=== PATIENT | male | born 1970 | race Caucasian/White ===

== ENCOUNTER → 2017-04-22 08:38 | Outpatient (CLI) | payer OTHER, SELFPAY ==
--- NOTE | 2017-04-22 08:43 | RAD_ITS ---
STUDY: X-RAY - ESOPHAGUS (BARIUM SWALLOW) WITH FLUOROSCOPY REASON FOR EXAM: Male, 47 years old. History of chronic cough and gastroesophageal reflux disease. Dermatomyositis.. TECHNIQUE: 24 view(s) of the esophagus were obtained following swallowing of barium. FLUOROSCOPY TIME (if supplied): (0:29) minutes/seconds COMPARISON: None. FINDINGS: There is no demonstrated esophageal foreign body. There is no demonstrated stricture or mucosal abnormality. There is a small hiatal hernia of the fundus of the stomach. No gastroesophageal reflux. The patient ingested a 12 mm tablet of barium without any difficulty. There is atherosclerotic tortuosity of the aortic arch and descending thoracic aorta. Normal visualized pulmonary parenchyma. Normal visualized osseous structures of the thorax. RAD/Esophagus Only IMPRESSION: Small sliding hiatal hernia without gastroesophageal reflux. The patient ingested a 12 mm tablet of barium without any difficulty. Electronically Signed: Alonso Wilson MD at 9:27 EST Tel [phone], Service support ,
== END ==
PROVIDERS: Family Provider Family Medicine; PCP Family Medicine
DX: M33.90 Dermatopolymyositis, unspecified, organ involvement unspecified (principal); I27.0 Primary pulmonary hypertension; I73.00 Raynaud's syndrome without gangrene; K21.9 Gastro-esophageal reflux disease without esophagitis
CPT/HCPCS: 74220

== ENCOUNTER → 2018-07-29 | Outpatient (CLI) | payer OTHER, SELFPAY ==
[2018-07-29 08:01] VITALS: BP 115/79; PULSE 59; RESP 16; TEMP 36.6; O2SAT 99; BMI 28.2
[2018-07-29] MEDS: MethylPREDNISolone 125 MG/2 ML Vial IV (08:15)
[2018-07-29] MEDS: DiphenhydrAMINE 50 MG/ML Syringe 25 MG IV (08:16)
[2018-07-29] MEDS: Acetaminophen 325 MG Tablet 650 MG PO (08:16)
[2018-07-29 13:32] VITALS: BP 117/77; PULSE 64; RESP 18; TEMP 36.8; O2SAT 97
== END | disposition home or self-care (01) ==
PROVIDERS: Family Provider Family Medicine; PCP Family Medicine
DX: M06.9 Rheumatoid arthritis, unspecified (principal)
CPT/HCPCS: 96365; 96366 ×4; 96374; 96375 ×2; J7040; J7050; J9312; A4216; J3490

== ENCOUNTER → 2018-08-12 08:11 | Outpatient (CLI) | payer OTHER, SELFPAY ==
[2018-07-29 08:01] VITALS: BMI 28.2
[2018-08-12 08:21] VITALS: BP 124/78; PULSE 51; RESP 16; TEMP 36.1; O2SAT 99; BMI 28.2
[2018-08-12] MEDS: MethylPREDNISolone 125 MG/2 ML Vial IV (08:34)
[2018-08-12] MEDS: Acetaminophen 325 MG Tablet 650 MG PO (08:34)
[2018-08-12] MEDS: DiphenhydrAMINE 50 MG/ML Syringe 25 MG IV (08:36)
== END ==
PROVIDERS: Family Provider Family Medicine; PCP Family Medicine
DX: M06.9 Rheumatoid arthritis, unspecified (principal)
CPT/HCPCS: 96365; 96366 ×3; 96374; 96375 ×2; J7040; J7050; J9312; A4216; J3490

== ENCOUNTER 2019-04-14 11:33 | Observation (INO) | payer OTHER, SELFPAY ==
[2018-08-12 08:21] VITALS: BMI 28.2
[2019-04-14 11:34] VITALS: BP 128/84; PULSE 75; RESP 22; TEMP 37.3; O2SAT 98; BMI 29.5
--- NOTE | 2019-04-14 11:49 | RAD_ITS ---
STUDY: X-RAY CHEST REASON FOR EXAM: Male, 49 years old. COUGH, SYNCOPE, HX INTERSITIAL LUNG DISEASE TECHNIQUE: PA and lateral views of the chest. COMPARISON: Comparison is made with prior study dated August 23, 2010. FINDINGS: EKG electrodes are seen. There is evidence of increased interstitial markings at the lung bases with areas of confluence suggestive of progressive pulmonary scarring. This has progressed as compared to prior study. There is no demonstrated pleural abnormality. Normal size heart. Normal mediastinum and anthony. Normal visualized pulmonary arteries. Normal visualized aortic arch and descending thoracic aorta. Normal visualized thoracic spine. Calcification in the soft tissues medial to the proximal left humerus. There is no demonstrated abnormality of the visualized soft tissue structures of the upper abdomen. RAD/Chest PA and Lateral IMPRESSION: Findings suggestive of pulmonary scarring in both lower lobes which has progressed as compared to prior study. Electronically Signed: Alonso Wilson, at 12:52 EST , Service support ,
--- NOTE | 2019-04-14 11:49 | EKG12_ITS ---
Test Reason : SYNCOPE Blood Pressure : / mmHG Vent. Rate : 073 BPM Atrial Rate : 073 BPM P-R Int : 138 ms QRS Dur : 090 ms QT Int : 370 ms P-R-T Axes : 026 046 047 degrees QTc Int : 407 ms Normal sinus rhythm T wave abnormality, consider lateral ischemia Abnormal ECG Confirmed by KASANDRA REBOLLAR ([id number]), editorial project manager IAN BOX ([id number]) on 04/17/2019 9:43:04 AM Referred By: AZALEA
[2019-04-14 12:10] LABS: Absolute Lymphocyte Count 0.78 X10^3/uL (0.83-4.51); Absolute Neutrophil Count 6.2 X10^3/uL (2.0-7.7); Basophil# 0.03 X10^3/uL; Basophil% 0.4 % (0-1); Eosinophil# 0.21 X10^3/uL; Eosinophils% 2.6 % (0-5); Hematocrit 46.8 % (40-54); Hemoglobin 15.2 g/dL (13.0-16.5); Lymphocyte # 0.78 X10^3/ul (4.0); Lymphocyte % 9.5 % (19-41); Mean Corp Hgb Conc 32.5 g/dL (32-36); Mean Corpuscular Hgb 28.6 pg (27.0-32.0); Mean Corpuscular Volume 88.1 fL (80-94); Mean Platelet Vol. 10.9 fl (6.2-12.0); Monocyte# 0.95 X10^3/uL; Monocyte% 11.6 % (0-10); NRBC Flagged by Analyzer 0 % (0-5); Neutrophil # 6.18 X10^3/uL (2.7-7.7); Neutrophil % 75.7 % (47-70); Platelet Count 159 K/mm3 (150-450); RBC Distribution Width CV 13.9 % (11.6-14.6); RBC Distribution Width SD 44.6 fl (35.1-43.9); Red Blood Count 5.31 M/mm3 (4.6-6.2); White Blood Count 8.2 K/mm3 (4.4-11.0)
[2019-04-14 12:11] LABS: Erythrocyte Sedimentation Rate 4 mm/hr (0-20)
[2019-04-14] MEDS: 0.9% Normal Saline 1,000 ML 150 ML IV (12:22)
[2019-04-14 12:40] LABS: Anion Gap 5 (5-15); BUN 12 mg/dL (7-18); BUN/Creat Ratio 11.7 RATIO (10-20); Chloride 106 mmol/L (98-107); Creatinine, Serum 1.03 mg/dL (0.70-1.30); EST Glomerular Filtration Rate 81 mL/min (>60); Est Glom Filt Rate - Afr Amer 98 mL/min (>60); Estimated Creatinine Clearance 98.65 ml/min; Glucose 119 mg/dL (74-106); Potassium 3.3 mmol/L (3.5-5.1); Sodium Level 140 mmol/L (136-145)
[2019-04-14 12:59] LABS: CPK Total, Creatine Kinase 70 U/L (39-308)
--- NOTE | 2019-04-14 13:26 | PCM.HP.STD ---
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 Patient admitted to having had recent upper respiratory infection 5 days which has since resolved. Patient presented to the primary care doctor's office with complaints of generalized malaise, and while being evaluated for lymphadenopathy by the PA, he reportedly had a syncopal episode. It is unclear how long patient had a syncopal episode. Reportedly half an hour for the syncope, patient still felt lightheaded and his blood pressures were low and the EMS was called and brought to the emergency department. His vitals in the ED showed temperature of 90 9.1F, heart rate 75, blood pressure 128/84, respiratory rate was 22, SPO2 was 98% on room air. Influenza screen in the ED was negative. His admitting CBC D was unremarkable, and was 140, potassium 3.3, chloride 106, bicarbonate 29, BUN 12, creatinine 1.03, CK 70, troponin 0 0.017, calcium 8.0. Chest x-ray showed scarring in both lower lobes of the lungs. EKG shows NSR, generalised T wave inversions in leads I, aVL, V1-V6. Past Medical History Past Medical History (Chronic Problems): Chronic Problems Dermatomyositis (Chronic) Interstitial lung disease (Chronic) Allergies No Known Allergies Allergy (Verified 04/14/19 11:38) Home Medications: Ambulatory Orders Medication Instructions Recorded Fluticasone 0.05% [Flonase Nasal 1 spray NASAL DAILY PRN 08/12/18 [place]] Mycophenolate Mofetil [Cellcept] 1,500 mg PO DAILY 08/12/18 Acetaminophen [Tylenol Extra 500 mg PO DAILY PRN PRN 04/14/19 Strength] Guaifenesin/Dextromethorphan 1 tab PO Q12H 04/14/19 [Mucinex Dm ER 1,200-60 mg Tab] Naproxen 500 mg PO DAILY PRN PRN 04/14/19 Surgical History: - - s/p chest tube placement for spontaneous hemothorax, lung biopsy Psychiatric History: No pertinent psych hx Lives: Spouse/ Significant Other Smoking Status: Never smoker Tobacco Use: Non-smoker Alcohol: None Drugs: None - *Family History Maternal History Items: No pertinent history Paternal History Items: No pertinent history Review of Systems Constitutional: Reports: Malaise, Weakness, Fatigue. Denies: Anorexia, Chills, Fever, Weight Change Eyes: Denies: Blurred vision, Cataracts, Conjunctivae Inflammation, Pain, Redness, Vision Change HEENT: Denies: Difficulty Hearing, Difficulty Swallowing, Head Aches, Hearing Changes, Sinus Congestion, Sinus Drainage Cardiovascular: Denies: Chest Pain, Claudication, Orthopnea, Palpitations, Paroxysmal Noc. Dyspnea Respiratory: Reports: Cough, Shortness of breath upon exertion, Wheezing. Denies: Shortness of Breath, Shortness of breath at rest, Sputum production Gastrointestinal: Denies: Abdominal Pain, Constipation, Hematemesis, Hematochezia, Nausea, Vomiting Genitourinary: Denies: Dysuria, Frequency, Incontinence, Nocturia Musculoskeletal: Reports: Joint Pain, Joint Tenderness, Muscle pain. Denies: Joint stiffness, Joint swelling Skin: Denies: Rash, Wounds Neurological: Denies: Difficulty swallowing, Focal weakness, Numbness, Tingling Psychiatric: Denies: Anxiety, Depression, Homicidal Ideations, Suicidal Ideations Endocrine: Denies: Change in Body Habitus Hematologic/ Lymphatic: Denies: Easy Bruising, Easy Bleeding VTE Information - Inpt Only VTE Present on Admission: No VTE Pharm Prophylaxis ordered?: Yes Patient Problems: Active and Suspected Problems Generalized body aches (Acute) Abnormal EKG (Acute) - Physical Exam Vitals/I&O's: Vital Signs Temp Pulse Resp BP Pulse Ox 99.1 F 75 22 H 128/84 H 98 04/14/19 11:34 04/14/19 11:34 04/14/19 11:34 04/14/19 11:34 04/14/19 11:34 Oxygen Delivery Method Room Air Weight: 104.326 kg Body Mass Index (BMI) 29.5 General: Alert, Oriented x3, Cooperative, No apparent distress HEENT: Atraumatic, PERRLA, EOMI, Normocephalic Oral: Moist Mucosa Neck: Supple Lungs: Diminished - at the lung bases with crackles Cardiovascular: Regular rate, Regular Rhythm, Normal S1, Normal S2, No murmurs Abdomen: Bowel Sounds Present, Soft, Non Tender, Non-Distended, No Hepato-splenomegaly Extremities: No edema Skin: No rashes, No breakdown Musculoskeletal: No Tenderness to Palpation of Joints or Extremities Lymphatic: No Cervical, Supraclavicular, or Inguinal Adenopathy Neurological: Cranial nerves II-XII grossly intact, Neuro grossly intact Psych/Mental Status: Normal Affect, Appropriate Microbiology Past 72 Hours 04/14/19 12:04 Mucosa - Nasopharyngeal Influenza Types A,B Direct FA (RELL) - Final Laboratory Results 04/14/19 11:40: WBC 8.2, RBC 5.31, Hgb 15.2, Hct 46.8, MCV 88.1, MCH 28.6, MCHC 32.5, RDW Std Deviation 44.6 H, RDW Coeff of Madalyn 13.9, Plt Count 159, MPV 10.9, Immature Gran % (Auto) 0.200, Neut % (Auto) 75.7 H, Lymph % (Auto) 9.5 L, [place] % (Auto) 11.6 H, Eos % (Auto) 2.6, Baso % (Auto) 0.4, Absolute Neuts (auto) 6.2, Absolute Lymphs (auto) 0.78 L, Nucleated RBC % 0, ESR 4 04/14/19 11:40: Sodium 140, Potassium 3.3 L, Chloride 106, Carbon Dioxide 29.0, Anion Gap 5, BUN 12, Creatinine 1.03, Estim Creat Clear Calc 98.65, Est GFR (MDRD) Af Amer 98, Est GFR (MDRD) Non-Af 81, BUN/Creatinine Ratio 11.7, Glucose 119 H, Calcium 8.0 L, Troponin I 0.017 04/14/19 11:40: Total Creatine Kinase 70 Current Medications Sodium Chloride () 1,000 mls @ 150 mls/hr IV .Q6H40M [facility] Last Admin: 04/14/19 12:22 Dose: 150 mls/hr Documented by: Assessment/Plan All Active Problems Generalized body aches (Acute) Abnormal EKG (Acute) 49 year old M with PMHx of dermatomyositis, interstitial lung disease who presented with generalized malaise ongoing for a week and found to have abnormal EKG. 1. Abnormal EKG, generalized T wave inversions in lead I, aVL, V1 to V6; patient is asymptomatic of chest pain History of underlying dermatomyositis; patient at risk for MIs because of this Initial troponin is 0.017, will trend troponins Had a recent 2D echo, will get results from his primary hospital 2. Syncope, unclear etiology, likely vasovagal This reportedly happened as his primary care PA was examining his axilla Will check orthostatic vitals, gentle IV fluids 3. Generalized body aches, recent upper respiratory illness, influenza screen negative, unclear etiology for now History of dermatomyositis, CK is normal, WBC count was normal, ESR was 4 We will get respiratory panel, Tylenol as needed 4. Hypokalemia, potassium is 3.3, replace, recheck in a.m. 5. Dermatomyositis with interstitial lung disease, continue mycophenolate 6. DVT PPx- Heparin SC Code Visit OBSV E&M: 58865 Initial observation care L2
--- NOTE | 2019-04-14 13:39 | ED.VISSUMM ---
- ER Visit Summary Date of Service: 04/14/19 Chief Complaint: [Body aches, shortness of breath, syncope] History of Present Illness: The patient is a 49 M [presents to the emergency department with complaints of body aches for about 5 days. Patient states initially his illness started with a cough about a week or so ago. He denies any fevers. Denies chills or sweats. Patient was seen by nurse practitioner in his primary care physician's office today and was referred to the emergency department as he had an abnormal looking EKG and while pushing on the patient's right chest patient had a syncopal episode. Half hour after the syncopal episode patient continued to feel woozy with standing and his blood pressure was dropping. Patient on arrival to the emergency department denies any chest pain. Patient does have history of interstitial lung disease as well as dermatomyositis. Denies recent travel or surgery.] Physical Examination: [HEENT-PERRLA, EOMI. Cranial nerves II through XII grossly intact. TMs clear. Mucous membranes moist. No adenopathy. Cardiovascular-regular rate and rhythm without murmur or ectopy Lungs-clear to auscultation, chest wall stable without crepitus or subcu emphysema Abdomen-normoactive bowel sounds, soft, nontender, no rebound or rigidity, no peritoneal signs. Extremities-intact ?4, normal range of motion, normal pulses, atraumatic] Test Results: [EKG obtained arrival shows sinus rhythm with a ventricular rate of 73 bpm with non-specific ST changes he had flipped T waves anteriorly and laterally. CBC with it showing of 8.2, hemoglobin 15, hematocrit 47, plates 115. Sed rate was 4. Chemistries unremarkable. Troponin was 0.017. Chest x-ray showed scarring of bilateral lower lobes. Influenza screen was negative. Patient CPK was normal. Emergency Department Course and Treatment: [She was placed on satellite project site monitor. Patient was observed in the department and was given normal saline.] Treatment Plan: [Admit for further work-up and evaluation of the abnormal EKG and syncopal episode.] Disposition: [Admit] Impression: [Abnormal EKG Syncope Myalgias] This note was generated with Stickybits dictation software. It may contain incorrect words, spelling, and punctuation that were not noted in review of the chart prior to signing ED Disposition - Plan for ED Patient: Referrals: Mike Guo MD [Primary Care Provider] -
--- NOTE | 2019-04-14 13:43 | NURSING ---
PCU SYNCOPE PAINTSIL
[2019-04-14 14:39] VITALS: BP 127/72; PULSE 65; RESP 16; TEMP 36.2; O2SAT 98
[2019-04-14 14:50] VITALS: BMI 30.7
[2019-04-14 14:56] VITALS: BMI 30.7
[2019-04-14 15:11] VITALS: PULSE 73
--- NOTE | 2019-04-14 15:25 | EKG12_ITS ---
Test Reason : AM EKG Blood Pressure : / mmHG Vent. Rate : 072 BPM Atrial Rate : 072 BPM P-R Int : 144 ms QRS Dur : 086 ms QT Int : 372 ms P-R-T Axes : 031 050 028 degrees QTc Int : 407 ms Normal sinus rhythm Nonspecific T wave abnormality Abnormal ECG When compared with ECG of 14-APR-2019 11:37, MANUAL COMPARISON REQUIRED, DATA IS UNCONFIRMED Confirmed by KASANDRA REBOLLAR ([id number]), scientific editor IAN BOX ([id number]) on 04/17/2019 9:56:11 AM Referred By: SHEREE Confirmed By:KASANDRA REBOLLAR
[2019-04-14] MEDS: Morphine 2 MG/ML Syringe IV ×2 (15:49→20:15)
[2019-04-14] MEDS: 0.9% Saline Lock 10 ML Syringe IV (15:49)
[2019-04-14] MEDS: 0.9% Normal Saline 1,000 ML 100 ML IV (17:17)
[2019-04-14 17:49] LABS: AST(SGOT) 20 U/L (15-37); Alanine Aminotransfer ALT/SGPT 16 U/L (16-61); Alkaline Phosphatase 38 U/L (45-117); Bilirubin, Direct 0.13 mg/dL (0.00-0.30); Globulin 3.1 g/dL (2.2-4.2); Protein, Total 6.1 g/dL (6.4-8.2)
[2019-04-14 18:32] VITALS: BP 116/67; BP 120/73; BP 125/76; PULSE 62; PULSE 72; PULSE 83; PULSE 84; RESP 16; TEMP 36.8; O2SAT 96
[2019-04-14 20:07] VITALS: PULSE 95
[2019-04-14] MEDS: Heparin Injection (Vial) 5,000 UNIT/ML VIAL 5000 UNIT SC (21:47)
[2019-04-14] MEDS: Mycophenolate Mofetil 250 MG Capsule 500 MG PO (21:47)
[2019-04-14 21:48] VITALS: BP 116/73; PULSE 73; RESP 18; TEMP 36.8; O2SAT 96
[2019-04-15] MEDS: Morphine 2 MG/ML Syringe IV (00:02)
[2019-04-15 03:01] VITALS: PULSE 63
[2019-04-15] MEDS: Acetaminophen 325 MG Tablet 650 MG PO (03:38)
[2019-04-15 03:48] VITALS: BP 134/76; PULSE 67; RESP 16; TEMP 36.8; O2SAT 94
[2019-04-15 04:39] LABS: Absolute Lymphocyte Count 1.15 X10^3/uL (0.83-4.51); Absolute Neutrophil Count 3.9 X10^3/uL (2.0-7.7); Basophil# 0.01 X10^3/uL; Basophil% 0.2 % (0-1); Eosinophil# 0.18 X10^3/uL; Hematocrit 45.4 % (40-54); Hemoglobin 14.4 g/dL (13.0-16.5); Lymphocyte # 1.15 X10^3/ul (4.0); Lymphocyte % 19.2 % (19-41); Mean Corp Hgb Conc 31.7 g/dL (32-36); Mean Corpuscular Hgb 28.1 pg (27.0-32.0); Mean Corpuscular Volume 88.7 fL (80-94); Mean Platelet Vol. 10.8 fl (6.2-12.0); Monocyte# 0.71 X10^3/uL; Monocyte% 11.9 % (0-10); NRBC Flagged by Analyzer 0 % (0-5); Neutrophil # 3.93 X10^3/uL (2.7-7.7); Neutrophil % 65.5 % (47-70); Platelet Count 170 K/mm3 (150-450); RBC Distribution Width CV 14.2 % (11.6-14.6); RBC Distribution Width SD 46.2 fl (35.1-43.9); Red Blood Count 5.12 M/mm3 (4.6-6.2)
[2019-04-15 05:14] LABS: ALB/GLOB Ratio 0.9 RATIO (0.9-2.4); AST(SGOT) 18 U/L (15-37); Alanine Aminotransfer ALT/SGPT 15 U/L (16-61); Albumin, Serum 2.8 g/dL (3.2-5.0); Alkaline Phosphatase 35 U/L (45-117); Anion Gap 2 (5-15); BUN 10 mg/dL (7-18); BUN/Creat Ratio 9.5 RATIO (10-20); Calcium,Total 7.9 mg/dL (8.5-10.1); Chloride 107 mmol/L (98-107); Creatinine, Serum 1.05 mg/dL (0.70-1.30); EST Glomerular Filtration Rate 79 mL/min (>60); Est Glom Filt Rate - Afr Amer 96 mL/min (>60); Estimated Creatinine Clearance 96.77 ml/min; Globulin 3.1 g/dL (2.2-4.2); Glucose 95 mg/dL (74-106); Potassium 3.9 mmol/L (3.5-5.1); Protein, Total 5.9 g/dL (6.4-8.2); Sodium Level 139 mmol/L (136-145)
[2019-04-15 05:55] VITALS: BP 120/70; BP 120/71; BP 133/85; PULSE 63; PULSE 69; PULSE 74
[2019-04-15] MEDS: Heparin Injection (Vial) 5,000 UNIT/ML VIAL 5000 UNIT SC (06:04)
[2019-04-15] MEDS: Oseltamivir Phosphate 75 MG Capsule PO (06:39)
[2019-04-15 07:45] VITALS: PULSE 58
[2019-04-15] MEDS: Mycophenolate Mofetil 250 MG Capsule 1000 MG PO (09:02)
[2019-04-15 09:15] VITALS: BP 123/70; PULSE 64; RESP 18; TEMP 36.7; O2SAT 97
--- NOTE | 2019-04-15 09:32 | PCM.DC ---
- Discharge Diagnoses Current Active Problems: Current Active and Chronic Problems Dermatomyositis (Chronic) Generalized body aches (Acute) Abnormal EKG (Acute) You will use the following diet at home:: Regular Your food should be the consistency of: Regular Discharge Activity: Return to Normal Activity Weight Bearing Status: Weight bearing as tolerated Call your doctor if you observe: Fever of 101 or Higher, Shortness of breath, Dizziness, Fainting spells, Chest pain, Increased palpitations (irregular heartbeat), Uncontrolled pain Allergies/Adverse Reactions: Allergies No Known Allergies Allergy (Verified 04/14/19 11:38) Medications to take at Discharge Fluticasone 0.05% [Flonase Nasal [place]] 1 spray NASAL DAILY PRN 08/12/18 Mycophenolate Mofetil [Cellcept] 1,500 mg PO DAILY 08/12/18 Acetaminophen [Tylenol] 500 mg PO DAILY PRN PRN 04/14/19 Guaifenesin/Dextromethorphan [Mucinex Dm ER 1,200-60 mg Tab] 1 tab PO Q12H 04/14/19 Naproxen 500 mg PO DAILY PRN PRN 04/14/19 Oseltamivir Phosphate [Tamiflu] 75 mg PO BID #10 cap 04/15/19 The following prescriptions were given: Oseltamivir Phosphate [Tamiflu] 75 mg PO BID #10 cap Transmission Status: Pending to [facility]/pharmacy #[id number] Primary Care Physician: Mike Guo MD [Primary Care Provider] - Please follow up with your Primary Care Physician in: 1-2 weeks. Test Results: Test results from this visit will be discussed in further detail at your follow-up appointment, if applicable.
--- NOTE | 2019-04-15 11:32 | PHA.DC.MC ---
Pharmacy Service has performed discharge medication reconciliation and counseling for this patient. 1. OSELTAMIVIR 75MG PO BID X 5 DAYS The patient's discharge medication list was reviewed for discrepancies and discrepancies were resolved. PT REQUESTED RX BE SENT TO [facility] INSTEAD OF [facility]. RN-CM UPDATED PHARMACY, DR. TALAMANTES NOTIFIED OF CHANGE. Home Medications Fluticasone 0.05% [Flonase Nasal [place]] 1 spray NASAL DAILY PRN 08/12/18 Mycophenolate Mofetil [Cellcept] 1,500 mg PO DAILY 08/12/18 Acetaminophen [Tylenol] 500 mg PO DAILY PRN PRN 04/14/19 Guaifenesin/Dextromethorphan [Mucinex Dm ER 1,200-60 mg Tab] 1 tab PO Q12H 04/14/19 Naproxen 500 mg PO DAILY PRN PRN 04/14/19 The patient was counseled on the following discharge medications and changes in medications for homegoing were reviewed. The Reason for Use, instructions for use, and potential side effects were reviewed for all new medications. The patient's questions regarding all of their medications were answered. The patient was able to verbally demonstrate an understanding of their discharge medications.
--- NOTE | 2019-04-15 11:33 | DS.PCM_ITS ---
Discharge Date and Diagnosis Date of Admission: 04/14/19 Date of Discharge: 04/15/19 - Primary Discharge Diagnosis #1 influenza A. #2 generalized muscle pains and aches. #3 chronic EKG changes, no acute ischemic changes. - Secondary Discharge Diagnosis Chronic Problems Dermatomyositis (Chronic) Interstitial lung disease (Chronic) Hospital Course and Treatment Imaging Results: Clinical Impression(s) from Imaging Studies Chest X-Ray 04/14/19 11:49 IMPRESSION: Findings suggestive of pulmonary scarring in both lower lobes which has progressed as compared to prior study. Electronically Signed: Alonso Juradoadriane, at 12:52 EST , Service support , Operations: None Procedures: EKG Summary of Care Provided: Patient seen and examined on the day of discharge and appeared to be stable to discharge home. He complained of generalized body and muscle aches as of yesterday, minimal improvement. He denied chest pain or shortness of breath. He is feeling well though. He has been afebrile, his vital signs are stable. The patient is a 49 year old M patient with history of dermatomyositis presented to the emergency room because of generalized body and muscle aches and pains along with mild cough and malaise. He was found to have influenza A and he was started on Tamiflu. His routine blood work was unremarkable except for mild hypokalemia of 3.3 which was replaced and corrected. His creatinine phosphokinase was normal. Chest x-ray revealed scarring on the right lung base, otherwise no acute infiltrate. Patient was treated with IV fluids and pain medications as needed. He was started on Tamiflu for influenza A. EKG on admis maribel revealed minimal T wave inversion in lateral chest leads. Troponin was negative x3. Patient denied any chest pain throughout admission. I reviewed his EKG from September 22, 2010 that revealed minimal T wave inversion in V4, V5 and V6 and compared to today's EKG, there was no significant changes. Patient discharged home in a stable condition, discharged on Tamiflu twice daily for 5 days, continued on his previous home medications without any changes, recommended follow-up with PCP in 1 to 2 weeks. - Physical Exam Vitals/I&O's: Vital Signs Temp Pulse Resp BP Pulse Ox 98.1 F 64 18 123/70 H 97 04/15/19 09:15 04/15/19 09:15 04/15/19 09:15 04/15/19 09:15 04/15/19 09:15 Oxygen Delivery Method Room Air Weight: 239 lb Body Mass Index (BMI) 30.7 Orthostatic Vital Signs Start: 04/14/19 18:33 Freq: q24h Status: Active Protocol: Activity Type Activity Date Activity User E-Sign Co-Sign Detail Recorded Client Recorded Date Recorded By Document 04/15/19 05:55 PAL [id number] 04/15/19 06:04 PAL 04/15/19 05:55 Orthostatic Vitals Standing -Blood Pressure (90/60-120/80) 133/85 H -Extremity Use Right Arm -Pulse Rate (60-100) 74 Sitting -Blood Pressure (90/60-120/80) 120/71 -Extremity Use Right Arm -Pulse Rate (60-100) 69 Lying -Blood Pressure (90/60-120/80) 120/70 -Extremity Use Right Arm -Pulse Rate (60-100) 63 Intake and Output for Last 24 Hours 04/13/19 04/14/19 04/15/19 23:59 23:59 23:59 Intake Total 895 / 895 1150 / 1150 Output Total 550 / 550 950 / 950 Balance 345 / 345 200 / 200 General: Alert, Oriented x3, Cooperative, No apparent distress HEENT: Atraumatic, PERRLA, EOMI, Normocephalic Oral: Moist Mucosa, No Gingival or Mucosal Lesions/ Ulcerations Neck: Supple, No JVD, Negative Carotid Bruits, Trachea Midline, Thyroid Normal Size and Texture Lungs: Clear to auscultation, Normal air movement, No rhonchi, No wheeze, No rales, Diminished Cardiovascular: Regular rate, Regular Rhythm, Normal S1, Normal S2, PMI Normal Abdomen: Bowel Sounds Present, Soft, Non Tender, Non-Distended, No Hepato- splenomegaly Extremities: No clubbing, No cyanosis, No edema Skin: No rashes, No breakdown Lymphatic: No Cervical, Supraclavicular, or Inguinal Adenopathy Neurological: Cranial nerves II-XII grossly intact, Neuro grossly intact Psych/Mental Status: Normal Affect, Appropriate Microbiology Past 72 Hours 04/14/19 12:04 Mucosa - Nasopharyngeal Respiratory Panel (PCR) - Final Influenza A (Subtype H1) 04/14/19 12:04 Mucosa - Nasopharyngeal Influenza Types A,B Direct FA (RELL) - Final Laboratory Results 04/14/19 11:40: WBC 8.2, RBC 5.31, Hgb 15.2, Hct 46.8, MCV 88.1, MCH 28.6, MCHC 32.5, RDW Std Deviation 44.6 H, RDW Coeff of Madalyn 13.9, Plt Count 159, MPV 10.9, Immature Gran % (Auto) 0.200, Neut % (Auto) 75.7 H, Lymph % (Auto) 9.5 L, [place] % (Auto) 11.6 H, Eos % (Auto) 2.6, Baso % (Auto) 0.4, Absolute Neuts (auto) 6.2, Absolute Lymphs (auto) 0.78 L, Nucleated RBC % 0, ESR 4 04/14/19 11:40: Sodium 140, Potassium 3.3 L, Chloride 106, Carbon Dioxide 29.0, Anion Gap 5, BUN 12, Creatinine 1.03, Estim Creat Clear Calc 98.65, Est GFR (MDRD) Af Amer 98, Est GFR (MDRD) Non-Af 81, BUN/Creatinine Ratio 11.7, Glucose 119 H, Calcium 8.0 L, Troponin I 0.017 04/14/19 11:40: Total Creatine Kinase 70 04/14/19 11:40: Total Bilirubin 0.50, Direct Bilirubin 0.13, AST 20, ALT 16, Alkaline Phosphatase 38 L, Total Protein 6.1 L, Albumin 3.0 L, Globulin 3.1 04/14/19 16:52: Troponin I < 0.015 04/14/19 19:08: Troponin I < 0.015 04/15/19 04:13: WBC 6.0, RBC 5.12, Hgb 14.4, Hct 45.4, MCV 88.7, MCH 28.1, MCHC 31.7 L, RDW Std Deviation 46.2 H, RDW Coeff of Madalyn 14.2, Plt Count 170, MPV 10.8, Immature Gran % (Auto) 0.200, Neut % (Auto) 65.5, Lymph % (Auto) 19.2, [place] % (Auto) 11.9 H, Eos % (Auto) 3.0, Baso % (Auto) 0.2, Absolute Neuts (auto) 3.9, Absolute Lymphs (auto) 1.15, Nucleated RBC % 0 04/15/19 04:13: Sodium 139, Potassium 3.9, Chloride 107, Carbon Dioxide 30.0, Anion Gap 2 L, BUN 10, Creatinine 1.05, Estim Creat Clear Calc 96.77, Est GFR (MDRD) Af Amer 96, Est GFR (MDRD) Non-Af 79, BUN/Creatinine Ratio 9.5 L, Glucose 95, Calcium 7.9 L, Total Bilirubin 0.50, AST 18, ALT 15 L, Alkaline Phosphatase 35 L, Total Protein 5.9 L, Albumin 2.8 L, Globulin 3.1, Albumin/Globulin Ratio 0.9 Discharge Activity: Return to Normal Activity Weight Bearing Status: Weight bearing as tolerated Call your doctor if you observe: Fever of 101 or Higher, Shortness of breath, Dizziness, Fainting spells, Chest pain, Increased palpitations (irregular heartbeat), Uncontrolled pain Home Medications: Medications to take at Discharge Fluticasone 0.05% [Flonase Nasal [place]] 1 spray NASAL DAILY PRN 08/12/18 Mycophenolate Mofetil [Cellcept] 1,500 mg PO DAILY 08/12/18 Acetaminophen [Tylenol] 500 mg PO DAILY PRN PRN 04/14/19 Guaifenesin/Dextromethorphan [Mucinex Dm ER 1,200-60 mg Tab] 1 tab PO Q12H 04/14/19 Naproxen 500 mg PO DAILY PRN PRN 04/14/19 Primary Care Physician: Mike Guo MD [Primary Care Provider] - Please follow up with your Primary Care Physician in: 1-2 weeks. Disposition: Home Minutes spent on discharge:: 26 Medical Necessity - Tobacco Use Smoking Status: Former smoker Tobacco Use: Non-smoker Meaningful Use Info Meaningful Use Diagnoses (Choose all that apply): None applicable Code Visit OBSV E&M: 94523 Observation care discharge
== END 2019-04-15 09:33 | disposition home or self-care (01) ==
LOC: ED 11:52 → PCU 14:20
PROVIDERS: Admitting Provider Internal Medicine; Emergency Provider Emergency Medicine; PCP Family Medicine; Visit Provider Hospitalist
DX: J10.1 Influenza due to other identified influenza virus with other respiratory manifestations (principal); M33.13 Other dermatomyositis without myopathy; Z23 Encounter for immunization; R94.31 Abnormal electrocardiogram [ECG] [EKG]; J84.9 Interstitial pulmonary disease, unspecified; Z79.899 Other long term (current) drug therapy; R55 Syncope and collapse; E87.6 Hypokalemia; Z87.891 Personal history of nicotine dependence
CPT/HCPCS: 36415; 71046; 80048; 80053; 80076; 82550; 84484; 85025; 85652; 87633; 87804; 93005; 96361; 96372; 96374; 96376; 99218; 99285; J7030; 90686; A4216; G0378

== ENCOUNTER 2020-05-17 09:59 | Outpatient (RCR) | payer OTHER, SELFPAY ==
[2020-05-17] MEDS: COVID-19 VACC, MRNA(PFIZER)/PF 30 MCG/0.3 ML SYRINGE IM (07:35)
[2020-06-07] MEDS: COVID-19 VACC, MRNA(PFIZER)/PF 30 MCG/0.3 ML SYRINGE IM (07:16)
== END 2020-08-16 23:59 ==
LOC: IMMUN 09:59
PROVIDERS: PCP Family Medicine; Visit Provider Family Medicine
DX: Z23 Encounter for immunization (principal)
CPT/HCPCS: 0001A; 0002A; 91300

== ENCOUNTER 2024-05-31 08:12 | Inpatient (IN) | payer OTHER, SELFPAY ==
[2024-05-31] VITALS (18 sets, daily range): BP systolic 101–147; BP diastolic 73–111; PULSE 73–106; RESP 18–36; TEMP 36.2–36.9; O2SAT 58–98; BMI 30.4
--- NOTE | 2024-05-31 08:18 | EKG12_ITS ---
Test Reason : SOB Blood Pressure : */* mmHG Vent. Rate : 105 BPM Atrial Rate : 105 BPM P-R Int : 128 ms QRS Dur : 98 ms QT Int : 364 ms P-R-T Axes : 52 67 0 degrees QTcB Int : 481 ms Sinus tachycardia Nonspecific T wave abnormality Abnormal ECG Confirmed by CHRISTINA QUINTANA, GAUTAM ([id number]), editor producer AARON VERA ([id number]) on 06/01/2024 8:19:04 AM Referred By: NASEEM Confirmed By: GAUTAM VASQUEZ MD
--- NOTE | 2024-05-31 08:34 | CT_ITS ---
PROCEDURE: CTA CHEST W/WO CONTRAST 05/31/2024 REASON FOR EXAM: SOB, RECENT SURG, HX OF INTERSTITIAL LUNG DISEASE TECHNIQUE: CTA axial imaging of the chest with intravenous contrast. Coronal and Sagittal reconstruction series were provided. 3D, 3D post processing, 3D reconstructions, Maximum intensity projection (MIPs) Volume rendering and Shaded surface rendering was provided. One or more dose reduction techniques were used (e.g., Automated exposure control, adjustment of the mA and/or kV according to patient size, use of iterative reconstruction technique). RADIATION DOSE SUMMARY: CTDlvol: 60.53 mGy DLP: 1915.52 mGycm. COMPARISON: Chest x-ray of 04/14/2019. FINDINGS: Lymph nodes: Numerous small and moderate-sized mediastinal lymph nodes are seen, most prominent in the left paratracheal and aortopulmonary window areas. Heart: No pericardial effusion is seen. No evidence of cardiomegaly. Thoracic Aorta: No aneurysmal dilation is seen. Pulmonary Vessels: No evidence of pulmonary embolism. Lungs and Airways: Marked interval progression of interstitial lung disease is seen, with extensive bulla and bleb formation. Also, marked ground-glass opacities are seen throughout both lungs, perhaps greatest at the upper lung zones. Pleura: No pleural effusion is seen. No pneumothorax is seen. Upper Abdomen: No acute upper abdominal process is noted. Bones: Mild degenerative changes. CT/CTA Chest W/WO Contrast IMPRESSION: 1. Marked interval progression of interstitial lung disease, as well as extensi ve ground-glass opacities, compared with the chest x-ray of 04/14/2019. If not already performed, recommend pulmonary consultatio n, at this time. 2. No evidence of pulmonary embolism. 3. Additional findings as noted. Reading Location: [id number]
[2024-05-31 08:35] LABS: Absolute Lymphocyte Count 0.56 X10^3/uL (0.83-4.51); Absolute Neutrophil Count 10.1 X10^3/uL (2.0-7.7); Basophil# 0.02 X10^3/uL; Basophil% 0.2 % (0-1); Hematocrit 41.9 % (40-54); Hemoglobin 14.2 g/dL (13.0-16.5); Lymphocyte # 0.56 X10^3/ul (0.83-4.51); Lymphocyte % 4.8 % (19-41); Mean Corp Hgb Conc 33.9 g/dL (32-36); Mean Corpuscular Hgb 29.5 pg (27.0-32.0); Mean Corpuscular Volume 86.9 fL (80-94); Monocyte# 0.96 X10^3/uL; Monocyte% 8.2 % (0-10); NRBC Flagged by Analyzer 0 % (0-5); Neutrophil # 10.09 X10^3/uL (2.7-7.7); Neutrophil % 86.2 % (47-70); POSITIVE DIFFERENTIAL YES; Platelet Count 246 K/mm3 (150-450); RBC Distribution Width SD 43.9 fl (35.1-43.9); Red Blood Count 4.82 M/mm3 (4.6-6.2); White Blood Count 11.7 K/mm3 (4.4-11.0)
--- NOTE | 2024-05-31 08:35 | EDS_ITS ---
HPI History of Present Illness Chief Complaint: Shortness of Breath Narrative Narrative: Patient is a 54-year-old male with past medical history of interstitial lung disease, dermatomyositis, Raynaud's disease, recent total knee arthroplasty at midnight on Saturday who presents to the [facility] part with a chief complaint of shortness of breath and not feeling well. Patient states that this morning when he woke up he noted that he felt like he was going to vomit and sat up and states that then he fell. According to EMS when they arrived he noted to be blue and was hypoxic on room air at 85%. He states that he is not on oxygen normally. According to the when she arrived she noted that she feels that his interstitial lung disease is flaring up as he has blue near his nose which is usually a sign of this. He states that is not on any blood thinning medication denies a history of blood clots. [facility] Medical History Raynaud disease Home Medications ?Medication ?Instructions ?Recorded ?Last Taken ?Type fluticasone propionate 50 1 spray DAILY PRN Allergies 08/12/18 04/14/19 History mcg/actuation nasal spray,suspension acetaminophen 500 mg tablet 500 mg PO DAILY PRN PRN Pa in Or 04/14/19 04/13/19 History Fever naproxen 500 mg tablet 500 mg PO DAILY PRN PRN Pain Or 04/14/19 04/13/19 History Fever ascorbic acid (vitamin C) 500 mg 500 mg PO BID 5 05/30/24 History tablet (Vitamin C) aspirin 81 mg tablet,delayed 81 mg PO DAILY 05/31/24 0 05/30/24 History release azathioprine 50 mg tablet 150 mg PO DAILY 05/31/24 History cefadroxil 500 mg capsule 500 mg PO BID INFECTION 05/1005/30/24 History docusate sodium 100 mg capsule 100 mg PO BID 05/31/24 05/30/24 History meloxicam 15 mg tablet 15 mg PO DAILY 05/31/2405/10 History omeprazole 20 mg capsule,delayed 20 mg PO DAILY ACID R EFLUX 05/31/24 05/30/24 History release oxycodone 5 mg tablet 10 mg PO Q4H PRN pain 05/31/24 History polyethylene glycol 3350 17 17 g PO DAILY PRN CONSTIPA TION 05/31/24 Unknown History gram/dose oral powder sildenafil (pulm.hypertension) 20 60 mg PO DAILY PRN B LLOOD FLOW 05/31/24 Unknown History mg tablet sulfamethoxazole 800 1 tab PO MOWEFR 05/31/24 History mg-trimethoprim 160 mg tablet Allergy/AdvReac Type Severity Reaction Status Date / Time No Known Allergies Allergy Verified 05/31/24 08:17 Surgical History History of left knee replacement History of lung biopsy Hx of carpal tunnel repair Social History Smoking Status: Former smoker ROS ROS ED ROS Narrative Constitutional: Denies fevers, chills, headache Eyes: Denies change in vision double vision blurry vision Cardiovascular: Denies chest pain or palpitations Respiratory: Complains of shortness of breath Abdomen: Complains of nausea vomiting denies abdominal pain : Denies any urinary symptoms Neurological: Denies numbness, weakness, tingling Musculoskeletal: Denies back pain Skin: Denies rashes or lesions EXAM Physical Exam Narrative Exam Narrative:
--- NOTE | 2024-05-31 08:35 | CT_ITS ---
PROCEDURE: ABDOMEN/PELVIS W IV CONT ONLY 05/31/2024 REASON FOR EXAM: N/V TECHNIQUE: Abdomen CT with intravenous contrast. Coronal and Sagittal reconstruction series were provided. ORAL CONTRAST TYPE: None. CONTRAST: Isovue 370 VOLUME: 100 mL. One or more dose reduction techniques were used (e.g., Automated exposure control, adjustment of the mA and/or kV according to patient size, use of iterative reconstruction technique. RADIATION DOSE SUMMARY: CTDlvol: 20.17 mGy DLP: 1915.52 mGycm COMPARISON: None. FINDINGS: Liver: Diffuse fatty infiltration of the liver is noted. Gallbladder: Unremarkable Spleen: No evidence of splenomegaly. Pancreas: Unremarkable Adrenals: Unremarkable Kidneys: Unremarkable Bladder: Unremarkable. Reproductive Organs: Unremarkable. Bowel: No bowel dilation is noted. Appendix: A normal-appearing vermiform appendix is noted. Lymph nodes: No adenopathy is identified. Vasculature: Moderate coronary artery calcification. Mild arterial calcification; no evidence of abdominal aortic aneurysm. Peritoneum / Retroperitoneum: Bones: Lumbar degenerative changes are most apparent at L2-L3 anterior lesser extent L3-L4 levels. Mild retrolisthesis of L3 upon L4 is noted. No evidence of spondylolysis. CT/Abdomen/Pelvis W IV Cont ONLY IMPRESSION: 1. No acute abdominal or pelvic process is seen. 2. Diffuse fatty infiltration of the liver. 3. Moderate coronary artery calcification. Reading Location: [id number]
--- NOTE | 2024-05-31 08:35 | EX.ED.DYSGE1 ---
HPI History of Present Illness Chief Complaint: Shortness of Breath Narrative Narrative: Patient is a 54-year-old male with past medical history of interstitial lung disease, dermatomyositis, Raynaud's disease, recent total knee arthroplasty at midnight on Saturday who presents to the [facility] part with a chief complaint of shortness of breath and not feeling well. Patient states that this morning when he woke up he noted that he felt like he was going to vomit and sat up and states that then he fell. According to EMS when they arrived he noted to be blue and was hypoxic on room air at 85%. He states that he is not on oxygen normally. According to the when she arrived she noted that she feels that his interstitial lung disease is flaring up as he has blue near his nose which is usually a sign of this. He states that is not on any blood thinning medication denies a history of blood clots. [facility] Medical History Raynaud disease Home Medications ?Medication ?Instructions ?Recorded ?Last Taken ?Type fluticasone propionate 50 1 spray DAILY PRN Allergies 08/12/18 04/14/19 History mcg/actuation nasal spray,suspension acetaminophen 500 mg tablet 500 mg PO DAILY PRN PRN Pain Or 04/14/19 04/13/19 History Fever naproxen 500 mg tablet 500 mg PO DAILY PRN PRN Pain Or 04/14/19 04/13/19 History Fever ascorbic acid (vitamin C) 500 mg 500 mg PO BID 05/31/24 05/30/24 History tablet (Vitamin C) aspirin 81 mg tablet,delayed 81 mg PO DAILY 05/31/24 05/30/24 History release azathioprine 50 mg tablet 150 mg PO DAILY 05/31/24 05/30/24 History cefadroxil 500 mg capsule 500 mg PO BID INFECTION 05/31/24 05/30/24 History docusate sodium 100 mg capsule 100 mg PO BID 05/31/24 05/30/24 History meloxicam 15 mg tablet 15 mg PO DAILY 05/31/24 05/30/24 History omeprazole 20 mg capsule,delayed 20 mg PO DAILY ACID REFLUX 05/31/24 05/30/24 History release oxycodone 5 mg tablet 10 mg PO Q4H PRN pain 05/31/24 05/31/24 History polyethylene glycol 3350 17 17 g PO DAILY PRN CONSTIPATION 05/31/24 Unknown History gram/dose oral powder sildenafil (pulm.hypertension) 20 60 mg PO DAILY PRN BLLOOD FLOW 05/31/24 Unknown History mg tablet sulfamethoxazole 800 1 tab PO MOWEFR 05/31/24 05/29/24 History mg-trimethoprim 160 mg tablet Allergy/AdvReac Type Severity Reaction Status Date / Time No Known Allergies Allergy Verified 05/31/24 08:17 Surgical History History of left knee replacement History of lung biopsy Hx of carpal tunnel repair Social History Smoking Status: Former smoker ROS ROS ED ROS Narrative Constitutional: Denies fevers, chills, headache Eyes: Denies change in vision double vision blurry vision Cardiovascular: Denies chest pain or palpitations Respiratory: Complains of shortness of breath Abdomen: Complains of nausea vomiting denies abdominal pain : Denies any urinary symptoms Neurological: Denies numbness, weakness, tingling Musculoskeletal: Denies back pain Skin: Denies rashes or lesions EXAM Physical Exam Narrative Exam Narrative: General: Patient lying in bed rest comfortably did not appear to be in acute distress Head: Atraumatic, normocephalic Eyes: PERRL bilateral, EOMI bilateral, no conjunctival injection noted Neck: Soft, supple and trachea midline Cardiovascular: Patient tachycardic with a regular rhythm no murmurs gallops rubs are noted Respiratory: Diminished breath sounds bilaterally Abdomen: Soft, nondistended, nontender to palpation Musculoskeletal: Patient has a wound VAC noted over the left knee and he was told that to keep this on until 1 week and then he can take it off from there Extremities: DP pulses +2/4 in the bilateral extremities, no pedal edema on exam Neurological: Patient follow commands knew that he was at [facility] years Skin: Warm, dry, intact no rashes or lesions noted Const Vital Signs: 05/31/24 08:12 05/31/24 08:12 05/31/24 08:17 Temperature 97.7 F L 97.7 F L Temperature Source Oral Oral Pulse Rate 106 H 106 H Respiratory Rate 36 H 36 H Respiratory Effort Respiratory Depth Respiratory Pattern Blood Pressure 147/111 H 147/111 H Blood Pressure Mean 123 123 Pulse Ox 95 95 Oxygen Delivery Method Nasal Cannula Nasal Cannula Oxygen Flow Rate (L/min) 4 4 05/31/24 08:20 05/31/24 08:46 05/31/24 08:46 Temperature Temperature Source Pulse Rate Respiratory Rate Respiratory Effort Short of Breath Labored Respiratory Depth Shallow Respiratory Pattern Tachypnea Blood Pressure Blood Pressure Mean Pulse Ox 58 89 Oxygen Delivery Method Nasal Cannula Nasal Cannula Non-Rebreather Oxygen Flow Rate (L/min) 4 6 15 05/31/24 08:58 05/31/24 09:17 05/31/24 10:00 Temperature 98.1 F 97.2 F L Temperature Source Oral Axillary Pulse Rate 101 H 88 Respiratory Rate 24 H 23 H Respiratory Effort Respiratory Depth Respiratory Pattern Blood Pressure 117/84 H 115/78 Blood Pressure Mean 95 90 Pulse Ox 92 95 92 Oxygen Delivery Method Non-Rebreather Oxygen Flow Rate (L/min) 15 05/31/24 10:58 05/31/24 11:08 05/31/24 11:12 Temperature 97.3 F L 98.3 F Temperature Source Axillary Pulse Rate 87 91 Respiratory Rate 18 26 H Respiratory Effort Respiratory Depth Respiratory Pattern Blood Pressure 123/78 H 118/91 H Blood Pressure Mean 93 100 Pulse Ox 92 93 94 Oxygen Delivery Method Non-Rebreather Non-Rebreather Oxygen Flow Rate (L/min) 10 MDM MDM MDM Narrative Medical decision making narrative: Patient is a 54-year-old male who presented to the emergency department chief complaint of nausea vomiting shortness of breath. On the differential diagnose includes but not limited to interstitial lung disease exacerbation, pulmonary embolism, pleural effusions, pneumothorax. Once workup is obtained reviewed he will be reevaluated. Patient be given Solu-Medrol. Patient CBC was reviewed and showed white blood count 11,000, hemoglobin is 14.2, plate count was noted to be 246. Patient INR 1.2, PT 15.6. Patient's ABG showed a pH 7.48 with a pCO2 of 27.5 with a pO2 of 60. Patient sodium low indicating hyponatremia 128, anion gap of 20, creatinine was 1.65. Patient's troponin was noted to be 260 with a delta troponin obtained at 212. Patient's EKG was obtained and reviewed by myself which showed sinus tachycardia with rate of [address] changes noted in the lateral leads. Patient proBNP elevated 17,019, glucose on chemistry was noted to be 171. Patient CT ab pelvis with IV contrast showed no acute abdominal pelvic processes diffuse fatty infiltration of the liver moderate coronary artery calcification. Patient CT of the chest showed no evidence of pulmonary embolism there is marked progression of interstitial lung disease. Will discuss case with hospitalist for admission. Discussed case with hospitalist Dr. Shah who accept patient for admission. He is recommending discussion with cardiology which will be paged. Patient be given 60 mg IV Lasix. Patient was notified that he would be admitted to the hospital all questions answered he is agreeable this plan Lab Data Labs: Laboratory Results - last 24 hr 05/31/24 05/31/24 05/31/24 08:22 09:44 10:19 WBC 11.7 H RBC 4.82 Hgb 14.2 Hct 41.9 MCV 86.9 MCH 29.5 MCHC 33.9 RDW Std Deviation 43.9 RDW Coeff of Madalyn 14.0 Plt Count 246 MPV 11.0 Immature Gran % (Auto) 0.600 Neut % (Auto) 86.2 H Lymph % (Auto) 4.8 L [place] % (Auto) 8.2 Eos % (Auto) 0.0 Baso % (Auto) 0.2 Absolute Neuts (auto) 10.1 H Absolute Lymphs (auto) 0.56 L Nucleated RBC % 0 PT 15.6 H INR 1.2 APTT 30.2 Sodium 128 L Potassium 4.0 Chloride 92 L Carbon Dioxide 15.9 L Anion Gap 20 H BUN 27 H Creatinine 1.65 H Estim Creat Clear Calc 65.36 Est GFR (MDRD) Non-Af 48 L BUN/Creatinine Ratio 16.1 Glucose 171 H Calcium 8.3 Troponin T High Sens 260 H* Troponin T Hi Sens 2 Hr 212 H* [place] [address] H POC Glucose 92 ABG Data ABG results: ABG 05/31/24 08:56 Specimen Type ART Sample Site R Brach pH 7.48 H Bicarbonate Actual 20.3 L Total CO2 21 Base Excess -3 L O2 Saturation 93 L O2 % 100.0 ABG pCO2 27.5 L ABG pO2 60 L O2 Delivery Device NRB Vent Mode Not entered Radiography Diagnostic Testing: Clinical Impression(s) from Imaging Studies Chest CTA 05/31/24 08:34 IMPRESSION: 1. Marked interval progression of interstitial lung disease, as well as extensive ground-glass opacities, compared with the chest x-ray of 04/14/2019. If not already performed, recommend pulmonary consultation, at this time. 2. No evidence of pulmonary embolism. 3. Additional findings as noted. Reading Location: [address] Abdomen/Pelvis CT 05/31/24 08:35 IMPRESSION: 1. No acute abdominal or pelvic process is seen. 2. Diffuse fatty infiltration of the liver. 3. Moderate coronary artery calcification. Reading Location: [address] Discharge Plan Triage Chief Complaint: Shortness of Breath ED Provider: Christiano Saravia Dx/Rx/DC Orders Clinical Impression: Interstitial lung disease, Acute hypoxic respiratory failure, Type 2 WA (myocardial infarction) Prescriptions: No Action fluticasone propionate 1 SPRAY spray,suspension 2 spray intranasal DAILY PRN (Reason: Allergies) acetaminophen 500 MG tablet 1,000 mg PO DAILY PRN (Reason: Pain Or Fever) naproxen 500 MG tablet 500 mg PO DAILY PRN (Reason: Pain Or Fever) oxycodone 5 mg tablet 10 mg PO Q4H PRN (Reason: pain) sulfamethoxazole-trimethoprim 800-160 mg tablet 1 tab PO MOWEFR polyethylene glycol 3350 17 gram/dose powder 17 g PO DAILY PRN (Reason: CONSTIPATION) omeprazole 20 mg capsule,delayed release(DR/EC) 20 mg PO DAILY meloxicam 15 mg tablet 15 mg PO DAILY cefadroxil 500 mg capsule 500 mg PO BID docusate sodium 100 mg capsule 100 mg PO BID azathioprine 50 mg tablet 150 mg PO DAILY aspirin 81 mg tablet,delayed release (DR/EC) 81 mg PO DAILY ascorbic acid (vitamin C) [Vitamin C] 500 mg tablet 500 mg PO BID sildenafil (pulm.hypertension) 20 mg tablet 60 mg PO DAILY PRN (Reason: BLLOOD FLOW) Primary Care Provider: Mike Guo Referrals: Mike Guo MD [Primary Care Provider] - Print Language: Azeri Disposition Disposition: Acute Care Hospital [facility]
[2024-05-31 08:43] LABS: International Normalized Ratio 1.2; Prothrombin Time (Protime)PT. 15.6 SECONDS (11.7-14.9)
[2024-05-31 08:44] LABS: Partial Thromboplast Time 30.2 Seconds (24.1-36.2)
[2024-05-31] MEDS: 0.9% Normal Saline (1000mL) 1,000 ML 999 ML IV (08:49)
[2024-05-31] MEDS: MethylPREDNISolone 125 MG/2 ML Vial IV (08:49)
[2024-05-31] MEDS: Ipratropium/Albuterol Sulfate 3 ML AMPUL.NEB INHALATION ×2 (08:50→19:09)
--- NOTE | 2024-05-31 08:58 | CPS ---
SPO2 confirmed with ABG
[2024-05-31 09:00] LABS: Base Excess -3 mmol/L (-2 to +2); Bicarbonate 20.3 mmol/L (22-26); Blood Gas Specimen Type ART; Mode Not entered; O2 Delivery Device NRB; PO2 60 mmHG (75-100); SITE R Brach; SO2 93 % (95-99); Total Carbon Dioxide 21 mmol/L; pCO2 27.5 mmHg (35-45); pH 7.48 (7.35-7.45)
--- NOTE | 2024-05-31 09:01 | ED.RN ---
Patients O2 84% on 15L NR. RT and MD informed and at bedside
[2024-05-31 10:01] LABS: Bedside Glucose 92 mg/dL (74-106)
[2024-05-31 10:09] LABS: Anion Gap 20 (5-15); Calcium,Total 8.3 mg/dL (7.6-11.0); Carbon Dioxide 15.9 mmol/L (21.0-32.0); Chloride 92 mmol/L (98-108); Creatinine, Serum 1.65 mg/dL (0.70-1.20); EST Glomerular Filtration Rate 48 (>60); Estimated Creatinine Clearance 65.36 ml/min (50-250); Pro- Brain NATRIURETIC PEPTIDE 17019 pg/mL (<=900); Sodium Level 128 mmol/L (133-145)
[2024-05-31 10:30] LABS: BUN 27 mg/dL (4-19); BUN/Creat Ratio 16.1 RATIO (10-20)
[2024-05-31 10:53] LABS: Glucose 171 mg/dL (70-99); Troponin T High Sensitivity 260 ng/L (<=22)
[2024-05-31 10:55] LABS: Troponin T High Sens 2 HR 212 ng/L (<=22)
[2024-05-31] MEDS: Ondansetron 4 MG/2 ML Vial IV (11:05)
[2024-05-31] MEDS: Morphine 4 MG/ML Syringe IV (11:05)
[2024-05-31] MEDS: Furosemide 100 MG/10 ML Vial 60 MG IV (11:23)
--- NOTE | 2024-05-31 11:23 | ECHOD_ITS ---
Reason For Study Reason For Study: DYSPNEA Procedure This was a 2D Doppler, Color Flow transthoracic echocardiogram. Exam performed portable in patient room. Left Ventricle Normal LV size. D shaped septum in diastole. The left ventricular ejection fraction is 55 %. No regional wall motion abnormalities noted. Right Ventricle Mildly dilated right ventricle. Normal systolic function. Atria Normal left atrium. Normal right atrium. Mitral Valve Normal mitral valve. Tricuspid Valve Normal tricuspid valve. Mild to moderate (1-2+) tricuspid valve insufficiency. Pulmonary artery systolic pressure is 53 mmHg. Aortic Valve Trisinus/trileaflet aortic valve. Pulmonic Valve Normal pulmonic valve. Great Vessels Normal aortic root. The pulmonary artery is normal size. Inferior vena cava collapse with sniff. Pericardium/Pleural No pericardial effusion. MMode/2D Measurements & Calculations LVIDd: 4.8 cm IVSd: 0.89 cm LVOT diam: 2.1 cm LVIDs: 2.6 cm LVPWd: 1.2 cm LVOT area: 3.4 cm2 FS: 46.7 % LAV(MOD-bp): 22.4 ml LVAd ap4: 20.2 cm2 SV(MOD-sp4): 35.1 ml LAV(MOD-bp) Indexed: 11.0 ml/m2 LVLd ap4: 7.6 cm SI(MOD-sp4): 17.2 ml/m2 LAV(MOD-sp2): 25.8 ml EDV(MOD-sp4): 49.6 ml LAV(MOD-sp4): 17.3 ml EDV(sp4-el): 46.0 ml LVAs ap4: 9.9 cm2 LVLs ap4: 6.3 cm ESV(MOD-sp4): 14.6 ml ESV(sp4-el): 13.2 ml EF(MOD-sp4): 70.6 % EF(sp4-el): 71.4 % SV(sp4-el): 32.8 ml LA A4 area: 10.0 cm2 LA dimension(2D): 2.9 cm RA A4 area: 19.4 cm2 Time Measurements MV dec time: 0.21 sec Doppler Measurements & Calculations MV E max chela: 53.3 cm/sec MV V2 max: 83.0 cm/sec MV dec slope: 276.8 cm/sec2 MV A max chela: 91.8 cm/sec MV max P.8 mmHg MV E/A: 0.58 MV V2 mean: 52.1 cm/sec MV mean P.2 mmHg MV V2 VTI: 24.2 cm MVA(VTI): 2.4 cm2 Ao V2 max: 102.6 cm/sec LV V1 max: 109.4 cm/sec SV(LVOT): 58.1 ml Ao max P.2 mmHg LV V1 max P.8 mmHg Ao V2 mean: 74.1 cm/sec LV V1 mean P.7 mmHg Ao mean P.5 mmHg LV V1 mean: 75.8 cm/sec Ao V2 VTI: 20.6 cm LV V1 VTI: 17.1 cm AV (velocity ratio): 0.83 CARRI(I,D): 2.8 cm2 CARRI(V,D): 3.6 cm2 PA V2 max: 81.6 cm/sec TR max chela: 350.4 cm/sec PA V2 mean: 62.0 cm/sec TR max P.1 mmHg ECHO/Echo Complete Interpretation Summary Normal LV size. The left ventricular ejection fraction is 55 %. D shaped septum in diastole. Pulmonary artery systolic pressure is 53 mmHg. Ordering Physician: Christian Shah Referring Physician: SHAHRIAR RPUITT Performed By: Holley Carlos RCS
--- NOTE | 2024-05-31 12:59 | HP.PCM.HOS_ITS ---
HPI - General General Date of Admission: 05/31/24 Date of Service: 05/31/24 Chief Complaint: Dyspnea HPI Narrative DAMI LARA, is a 54 M who presents to the emergency room at [facility] with complaints of increasing dyspnea over the past 2 days. Patient has a history of pulmonary fibrosis is currently under the care of a log skidder. Patient uses no oxygen at home. Patient denies any chest pain, denies any productive sputum, denies any fever or chills. Workup in the emergency room included a CT of the chest which showed marked interval progression of interstitial lung disease as well as extensive groundglass opacities as compared with a chest x-ray that was performed on 04/14/19, no evidence of pulmonary embolism was seen. Patient had a CTA of his abdomen and pelvis, there was diffuse fatty liver noted to be present, no acute process was seen. Labs were obtained, white blood cell count was 11.7, CHEM panel was remarkable for sodium of 128, creatinine was 1.65 and BUN was 27. Glucose was 171, patient's initial troponin was 260, repeat troponin was 212, patient's natruretic peptide was elevated at 17,019. Patient required a nonrebreather in the emergency room to maintain his pulse ox above 90%. Patient will be admitted to PCU for flareup of pulmonary fibrosis and acute congestive heart failure, IV Lasix will be administered, IV Solu-Medrol will be given to the patient, patient will have aerosol treatments administered, echocardiogram will be obtained. [facility], [facility] Medical History Raynaud disease Home Medications ?Medication ?Instructions ?Recorded ?Last Taken ?Type fluticasone propionate 50 2 spray intranasal DAILY PRN 08/12/18 05/27/24 History mcg/actuation nasal Allergies spray,suspension acetaminophen 500 mg tablet 1,000 mg PO DAILY PRN Pain Or Fever 04/14/19 05/31/24 History naproxen 500 mg tablet 500 mg PO DAILY PRN Pain Or Fever 04/14/19 04/13/19 History ascorbic acid (vitamin C) 500 mg 500 mg PO BID 5 05/30/24 History tablet (Vitamin C) aspirin 81 mg tablet,delayed 81 mg PO DAILY 05/31/24 0 05/30/24 History release azathioprine 50 mg tablet 150 mg PO DAILY 05/31/24 History cefadroxil 500 mg capsule 500 mg PO BID INFECTION 05/1005/30/24 History docusate sodium 100 mg capsule 100 mg PO BID 05/31/24 05/30/24 History meloxicam 15 mg tablet 15 mg PO DAILY 05/31/2405/10 History omeprazole 20 mg capsule,delayed 20 mg PO DAILY ACID R EFLUX 05/31/24 05/30/24 History release oxycodone 5 mg tablet 10 mg PO Q4H PRN pain 05/31/24 History polyethylene glycol 3350 17 17 g PO DAILY PRN CONSTIPA TION 05/31/24 Unknown History gram/dose oral powder sildenafil (pulm.hypertension) 20 60 mg PO DAILY PRN B LLOOD FLOW 05/31/24 Unknown History mg tablet sulfamethoxazole 800 1 tab PO MOWEFR 05/31/24 History mg-trimethoprim 160 mg tablet Allergy/AdvReac Type Severity Reaction Status Date / Time No Known Allergies Allergy Verified 05/31/24 08:17 Surgical History History of left knee replacement History of lung biopsy Hx of carpal tunnel repair Social History Smoking Status: Former smoker ROS Constitutional Constitutional: Reports fatigue; Denies anorexia, change in weight, chills, fever(s), night sweats or weakness Eyes Eyes: Denies blurry vision, change in vision, discharge from eye(s) or eye pain Cardiovascular Cardiovascular: Reports dyspnea on exertion; Denies chest pain, claudication, edema or palpitations Respiratory/Chest Respiratory/Chest: Reports dyspnea, shortness of breath at rest and shortness of breath with exertion; Denies cough or hemoptysis Gastrointestinal Gastrointestinal: Denies abdominal pain, constipation, diarrhea, hematemesis, hematochezia, melena, nausea or vomiting Genitourinary Genitourinary: Denies dysuria, hematuria, urinary frequency, urinary hesitancy, urinary incontinence or urinary urgency Musculoskeletal Musculoskeletal: Denies back pain, joint pain, joint stiffness, joint swelling, myalgias or neck pain Neurologic Neurologic: Denies abnormal gait, abnormal speech, confusion, dizziness, focal weakness, headache(s), loss of vision, numbness, other visual disturbances, paresthesias, syncope or tingling Psychiatric Psychiatric: Denies anxiety, cognitive impairment, depression, irritability, mood swings or suicidal ideation Endocrine Endocrinology: Denies change in body appearance, cold intolerance, excessive sweating, heat intolerance, polydipsia or polyuria Hematologic/Lymphatic Hematologic/Lymphatic: Denies none, anemia, easy bleeding, easy bruising or lymphadenopathy Allergic/Immunologic Allergic/Immunologic: Denies rhinitis, urticaria, eczemia or asthma Vital Signs Vital Signs Vital Signs: 05/31/24 08:12 05/31/24 08:12 05/31/24 08:17 Temperature 97.7 F L 97.7 F L Temperature Source Oral Oral Pulse Rate 106 H 106 H Respiratory Rate 36 H 36 H Respiratory Effort Respiratory Depth Respiratory Pattern Blood Pressure 147/111 H 147/111 H Blood Pressure Mean 123 123 Blood Pressure Source Blood Pressure Position Pulse Ox 95 95 Oxygen Delivery Method Nasal Cannula Nasal Cannula Oxygen Flow Rate (L/min) 4 4 05/31/24 08:20 05/31/24 08:46 05/31/24 08:46 Temperature Temperature Source Pulse Rate Respiratory Rate Respiratory Effort Short of Breath Labored Respiratory Depth Shallow Respiratory Pattern Tachypnea Blood Pressure Blood Pressure Mean Blood Pressure Source Blood Pressure Position Pulse Ox 58 89 Oxygen Delivery Method Nasal Cannula Nasal Cannula Non-Rebreather Oxygen Flow Rate (L/min) 4 6 15 05/31/24 08:58 05/31/24 09:17 05/31/24 10:00 Temperature 98.1 F 97.2 F L Temperature Source Oral Axillary Pulse Rate 101 H 88 Respiratory Rate 24 H 23 H Respiratory Effort Respiratory Depth Respiratory Pattern Blood Pressure 117/84 H 115/78 Blood Pressure Mean 95 90 Blood Pressure Source Blood Pressure Position Pulse Ox 92 95 92 Oxygen Delivery Method Non-Rebreather Oxygen Flow Rate (L/min) 15 05/31/24 10:58 05/31/24 11:08 05/31/24 11:12 Temperature 97.3 F L 98.3 F Temperature Source Axillary Pulse Rate 87 91 Respiratory Rate 18 26 H Respiratory Effort Respiratory Depth Respiratory Pattern Blood Pressure 123/78 H 118/91 H Blood Pressure Mean 93 100 Blood Pressure Source Blood Pressure Position Pulse Ox 92 93 94 Oxygen Delivery Method Non-Rebreather Non-Rebreather Oxygen Flow Rate (L/min) 10 05/31/24 12:10 05/31/24 12:18 Temperature 97.7 F L Temperature Source Oral Pulse Rate 95 92 Respiratory Rate 28 H 24 H Respiratory Effort Short of Breath Labored Accessory Muscle Use Respiratory Depth Shallow Respiratory Pattern Tachypnea Blood Pressure 101/73 Blood Pressure Mean 82 Blood Pressure Source Monitor Blood Pressure Position Sitting Pulse Ox 92 Oxygen Delivery Method Non-Rebreather Non-Rebreather Oxygen Flow Rate (L/min) 15 15 Weight Weight: 106.1 kg Body Mass Index (BMI) 30.0 Physical Exam Const alert, oriented x3, no apparent distress and healthy appearing General Appearance: cooperative, well kempt and well developed Orientation / Consciousness: awake, oriented to person, oriented to place and oriented to time HEENT normocephalic, head/scalp atraumatic, hearing grossly normal bilaterally and moist oral mucous membranes Eyes PERRL, EOMs intact bilaterally and conjunctivae normal Neck supple, no JVD, thyroid normal and no carotid bruits General: trachea midline Resp normal respiratory effort, no retractions and no use of accessory muscles Resp Narrative: Patient is currently on 15 L nonrebreather, he appears comfortable at rest, there are inspiratory rales noted over both lower lung smith, no rhonchi or wheezes was noted. Auscultation: Negative for rales, rhonchi or wheezes Cardio regular rate, regular rhythm, S1 normal heart sound, S2 normal heart sound, no murmurs, no rub and no gallops GI normal to inspection, nondistended, normoactive bowel sounds, soft to palpation, non-tender and non-distended Extremity Extremity Narrative: Patient's left lower leg is wrapped with an Servando wrap, he states he just had surgery on his left knee recently. Skin no rashes or lesions noted General Skin Exam: no breakdown Neuro oriented x3, CN's II-XII intact bilaterally, moves all extremities, no focal motor deficits and no sensory deficits noted Sensorium / Orientation: awake and alert Speech: speech normal Psych affect normal Results Lab / Micro Data 05/31/24 08:22 05/31/24 08:22 Labs: Laboratory Results - last 24 hr 05/31/24 08:22: WBC 11.7 H, RBC 4.82, Hgb 14.2, Hct 41.9, MCV 86.9, MCH 29.5, MCHC 33.9, RDW Std Deviation 43.9, RDW Coeff of Madalyn 14.0, Plt Count 246, MPV 11.0, Immature Gran % (Auto) 0.600, Neut % (Auto) 86.2 H, Lymph % (Auto) 4.8 L, [place] % (Auto) 8.2, Eos % (Auto) 0.0, Baso % (Auto) 0.2, Absolute Neuts (auto) 10.1 H, Absolute Lymphs (auto) 0.56 L, Nucleated RBC % 0, PT 15.6 H, INR 1.2, APTT 30.2, Sodium 128 L, Potassium 4.0, Chloride 92 L, Carbon Dioxide 15.9 L, A nion Gap 20 H, BUN 27 H, Creatinine 1.65 H, Estim Creat Clear Calc 65.36, Est GFR (MDRD) Non-Af 48 L, BUN/Creatinine Ratio 16.1, Glucose 171 H, Calcium 8.3, T roponin T High Sens 260 H*, [place] [address] H 05/31/24 09:44: POC Glucose 92 05/31/24 10:19: Troponin T Hi Sens 2 Hr 212 H* ABG Data ABG results: ABG 05/31/24 08:56 Specimen Type ART Sample Site R Brach pH 7.48 H Bicarbonate Actual 20.3 L Total CO2 21 Base Excess -3 L O2 Saturation 93 L O2 % 100.0 ABG pCO2 27.5 L ABG pO2 60 L O2 Delivery Device NRB Vent Mode Not entered Imaging Radiology Impression Chest CTA 05/31/24 08:34 IMPRESSION: 1. Marked interval progression of interstitial lung disease, as well as extensive ground-glass opacities, compared with the chest x-ray of 04/14/2019. If not already performed, recommend pulmonary consultation, at this time. 2. No evidence of pulmonary embolism. 3. Additional findings as noted. Reading Location: [id number] Abdomen/Pelvis CT 05/31/24 08:35 IMPRESSION: 1. No acute abdominal or pelvic process is seen. 2. Diffuse fatty infiltration of the liver. 3. Moderate coronary artery calcification. Reading Location: [address] Assessment & Plan Assessment/Plan (1) Interstitial lung disease: PLAN: Plan 1. Acute hypoxic respiratory failure secondary to flareup of pulmonary fibrosis and acute CHF-patient will be admitted to PCU, IV Lasix will be administered, he will be given IV corticosteroids and aerosol treatments. Pulse ox will be monitored. #2 Flareup of pulmonary fibrosis-patient will be placed on IV corticosteroids and he will remain on his home medication for pulmonary fibrosis. Patient will be given aerosol treatments. #3 Acute congestive heart failure-patient has never had a diagnosis of heart failure before, patient will have an echocardiogram performed tomorrow, IV Lasix will be given to the patient #4 Dermatomyositis-patient will remain on his home medications, he follows up with the it sales representative as an outpatient #5 elevated blood sugar-I will obtain an hemoglobin A1c, it may be necessary to monitor the patient's fingerstick blood sugars, I will order another BMP in the morning. Total clinical time spent by myself addressing the patient's medical issues, reviewing all of his data, and collaborating with patient's care team: 75 minutes Charges/Coding Visit Charges Inpatient E&M: 18626 Init Hosp L3
[2024-05-31] MEDS: MethylPREDNISolone 125 MG/2 ML Vial 60 MG IV ×2 (14:51→21:40)
[2024-05-31] MEDS: Furosemide 20 MG/2 ML VIAL IV ×2 (14:55→21:41)
[2024-05-31] MEDS: Potassium Chloride Oral Tablet 20 MEQ PO (16:00)
[2024-05-31] MEDS: Acetaminophen 325 MG Tablet 650 MG PO (16:00)
[2024-05-31] MEDS: oxyCODONE 5 MG Tablet 10 MG PO ×2 (16:44→21:39)
[2024-05-31] MEDS: Cefadroxil 500 MG CAPSULE PO (21:33)
[2024-05-31] MEDS: Ascorbic Acid 500 MG Tablet PO (21:33)
[2024-05-31] MEDS: Docusate Sodium 100 MG Capsule PO (21:33)
[2024-05-31] MEDS: Heparin Injection (Vial) 5,000 UNIT/ML VIAL 5000 UNIT SC (21:41)
[2024-06-01] VITALS (14 sets, daily range): BP systolic 106–116; BP diastolic 76–84; PULSE 68–95; RESP 18–20; TEMP 36.3–36.6; O2SAT 88–99
[2024-06-01 05:12] LABS: Anion Gap 11 (5-15); BUN 29 mg/dL (4-19); BUN/Creat Ratio 24.5 RATIO (10-20); Calcium,Total 8.5 mg/dL (7.6-11.0); Carbon Dioxide 24.4 mmol/L (21.0-32.0); Chloride 96 mmol/L (98-108); Creatinine, Serum 1.17 mg/dL (0.70-1.20); EST Glomerular Filtration Rate 73 (>60); Glucose 167 mg/dL (70-99); Sodium Level 132 mmol/L (133-145)
[2024-06-01] MEDS: Furosemide 20 MG/2 ML VIAL IV ×3 (05:25→20:59)
[2024-06-01] MEDS: MethylPREDNISolone 125 MG/2 ML Vial 60 MG IV ×3 (05:26→20:59)
[2024-06-01] MEDS: 0.9% Saline Lock 10 ML Syringe IV (05:26)
[2024-06-01] MEDS: Ipratropium/Albuterol Sulfate 3 ML AMPUL.NEB INHALATION ×3 (07:27→19:28)
--- NOTE | 2024-06-01 08:36 | WOUNDNOTE ---
Was asked to see patient for wound VAC to the left knee. pt states he had knee surgery Saturday05/29/24 in [place]. states the wound VAC dressing is to remain in place for 7 days. Pt has a disposable VAC in place. good seal noted. no sign of leak noted. will monitor. pt with KEVEN wrap in place and is using an ice pack as needed. pt denies needs at this time.
[2024-06-01] MEDS: oxyCODONE 5 MG Tablet 10 MG PO ×3 (09:19→18:13)
[2024-06-01] MEDS: Acetaminophen 325 MG Tablet 650 MG PO ×2 (09:19→17:10)
[2024-06-01] MEDS: Aspirin E.C. 81 MG Tablet PO (09:20)
[2024-06-01] MEDS: Potassium Chloride Oral Tablet 20 MEQ PO ×2 (09:20→17:10)
[2024-06-01] MEDS: Smz/Tmp Ds Tablet 1 TABLET PO (09:20)
[2024-06-01] MEDS: Polyethylene Glycol 3350 17 GM PACKET PO (09:20)
[2024-06-01] MEDS: Cefadroxil 500 MG CAPSULE PO ×2 (09:21→20:59)
[2024-06-01] MEDS: Docusate Sodium 100 MG Capsule PO ×2 (09:21→21:00)
[2024-06-01] MEDS: Heparin Injection (Vial) 5,000 UNIT/ML VIAL 5000 UNIT SC ×2 (09:21→20:58)
[2024-06-01] MEDS: azaTHIOprine 50 MG Tablet 150 MG PO (09:21)
[2024-06-01] MEDS: Ascorbic Acid 500 MG Tablet PO ×2 (09:22→21:00)
--- NOTE | 2024-06-01 09:54 | PN.HOSP_ITS ---
Reason for Visit Reason for Visit: Diagnoses Interstitial pulmonary disease, unspecified (05/31/24) Subjective Subjective Patient was seen and examined today, he states he feels better, he is currently on 6 L of oxygen. Echocardiogram was performed today we are awaiting results. Objective Data Objective Data Vital Signs: Vital Signs Temp Pulse Resp BP Pulse Ox O2 Del Method O2 Flow Rate 97.3 F L 79 18 116/84 H 94 Nasal Cannula 6 06/01/24 09:13 06/01/24 09:13 06/01/24 09:13 06/01/24 09:13 06/01/24 09:13 06/01/24 09:13 06/01/24 09:13 FiO2 68 05/31/24 22:00 Oxygen Flow Rate (L/min) 6 Oxygen Delivery Method Nasal Cannula Weight: 106.1 kg Body Mass Index (BMI) 30.0 Intake & Output: Intake and Output for Last 24 Hours 05/30/24 05/31/24 06/01/24 23:59 23:59 23:59 Intake Total 1000 / 1440 560 / 560 Output Total 1000 / 1250 2250 / 2250 Balance 0 / 190 -1690 / -1690 Lab / Micro Data 05/31/24 08:22 06/01/24 04:21 Labs: Laboratory Results - last 24 hr 05/31/24 08:22: Sodium 128 L, Potassium 4.0, Chloride 92 L, Carbon Dioxide 15.9 L, Anion Gap 20 H, BUN 27 H, Creatinine 1.65 H, Estim Creat Clear Calc 65.36, E st GFR (MDRD) Non-Af 48 L, BUN/Creatinine Ratio 16.1, Glucose 171 H, Calcium 8.3, Troponin T High Sens 260 H*, [place] [address] H 05/31/24 09:44: POC Glucose 92 05/31/24 10:19: Troponin T Hi Sens 2 Hr 212 H* 06/01/24 04:21: Sodium 132 L, Potassium 4.0, Chloride 96 L, Carbon Dioxide 24.4, Anion Gap 11, BUN 29 H, Creatinine 1.17, Estim Creat Clear Calc 91.50, Est GFR (MDRD) Non-Af 73, BUN/Creatinine Ratio 24.5 H, Glucose 167 H, Calcium 8.5 Radiography Diagnostic Testing: Radiology Impression Chest CTA 05/31/24 08:34 IMPRESSION: 1. Marked interval progression of interstitial lung disease, as well as extensive ground-glass opacities, compared with the chest x-ray of 04/14/2019. If not already performed, recommend pulmonary consultation, at this time. 2. No evidence of pulmonary embolism. 3. Additional findings as noted. Reading Location: [address] Abdomen/Pelvis CT 05/31/24 08:35 IMPRESSION: 1. No acute abdominal or pelvic process is seen. 2. Diffuse fatty infiltration of the liver. 3. Moderate coronary artery calcification. Reading Location: [address] Physical Exam Narrative alert, oriented x3, no apparent distress and healthy appearing General Appearance: cooperative, well kempt and well developed Orientation / Consciousness: awake, oriented to person, oriented to place and oriented to time HEENT normocephalic, head/scalp atraumatic, hearing grossly normal bilaterally and moist oral mucous membranes Eyes PERRL, EOMs intact bilaterally and conjunctivae normal Neck supple, no JVD, thyroid normal and no carotid bruits General: trachea midline Resp normal respiratory effort, no retractions and no use of accessory muscles Resp Narrative: Patient is currently on 15 L nonrebreather, he appears comfortable at rest, there are inspiratory rales noted over both lower lung smith, no rhonchi or wheezes was noted. Auscultation: Negative for rales, rhonchi or wheezes Cardio regular rate, regular rhythm, S1 normal heart sound, S2 normal heart sound, no murmurs, no rub and no gallops GI normal to inspection, nondistended, normoactive bowel sounds, soft to palpation, non-tender and non-distended Extremity Extremity Narrative: Patient's left lower leg is wrapped with an Servando wrap, he states he just had surgery on his left knee recently. Skin no rashes or lesions noted General Skin Exam: no breakdown Neuro oriented x3, CN's II-XII intact bilaterally, moves all extremities, no focal motor deficits and no sensory deficits noted Sensorium / Orientation: awake and alert Speech: speech normal Psych affect normal Assessment & Plan Assessment/Plan (1) Acute hypoxic respiratory failure: (2) Interstitial lung disease: PLAN: Plan 1. Acute hypoxic respiratory failure secondary to flareup of pulmonary fibrosis and acute CHF-patient will continue aerosol treatments, IV corticosteroids, and IV Lasix. Pulse ox will be monitored, patient is now on nasal cannula oxygen #2 Flareup of pulmonary fibrosis-patient will continue on IV corticosteroids and he will remain on his home medication for pulmonary fibrosis. Patient will be given aerosol treatments. #3 Acute congestive heart failure-patient has never had a diagnosis of heart failure before, patient will have an echocardiogram performed today, IV Lasix will be given to the patient #4 Dermatomyositis-patient will remain on his home medications, he follows up with the grain broker and market operator as an outpatient #5 elevated blood sugar-I will obtain an hemoglobin A1c, it may be necessary to monitor the patient's fingerstick blood sugars, I will order another BMP in the morning. #6 demand ischemia-I do not feel the patient has had a type II [place] Total clinical time spent by myself addressing the patient's medical issues, reviewing all of his data, and collaborating with patient's care team: 35 minutes Charges/Coding Visit Charges Inpatient E&M: 72019 Subs Hosp L2
--- NOTE | 2024-06-01 10:00 | CASEMGMT ---
MAXIMINO SHANKAR Face to Face with patient for initial transition planning/care coordination assessment. MAXIMINO SHANKAR introduced self and role at [facility]. Patient lying in bed, alert and oriented. Patient willing to participate in assessment and is able to answer all questions appropriately. Care providers, pharmacy, and demographics verified. Strata: 1 PCP: Sari Specialists: Eduardo, industrial spray painter; Josey Schaefer Preferred Pharmacy: [facility] Insurance: [facility] Prescription Benefit: yes Living Will/HPOA: none LNOK: mother, significant other Living Arrangements: Patient lives with significant other in a split level home with 7 steps between levels, patient is setup on first floor. Patient states he is independent at home. Transportation: significant other DME/HHC: Patient has shower chair, cane, walker, raised toilet, and pulse ox at home. Patient states he was setup with HHC for home therapy from [facility] after his recent knee surgery. Will monitor for home oxygen, prefers [employer]. Patient wishes to discharge home with home therapy. Patient states he has no further needs or concerns at this time. MAXIMINO SHANKAR updated DC capacity planning manager to inquire about HHC therapy. CM to follow for discharge planning needs that may arise. Disposition Plan: Patient to discharge home with family support and follow-up plans in place. Dione DOMÍNGUEZ, RN, CM
[2024-06-01] MEDS: Pantoprazole Sodium 20 MG Tablet PO (11:49)
[2024-06-01] MEDS: Meloxicam 15 MG Tablet PO (11:49)
[2024-06-02] VITALS (12 sets, daily range): BP systolic 115–138; BP diastolic 80–90; PULSE 64–79; RESP 15–18; TEMP 36–36.6; O2SAT 92–100
[2024-06-02] MEDS: oxyCODONE 5 MG Tablet 10 MG PO ×4 (03:26→20:44)
[2024-06-02] MEDS: MethylPREDNISolone 125 MG/2 ML Vial 60 MG IV ×2 (05:43→16:24)
[2024-06-02] MEDS: Furosemide 20 MG/2 ML VIAL IV (05:43)
[2024-06-02] MEDS: Ipratropium/Albuterol Sulfate 3 ML AMPUL.NEB INHALATION ×3 (07:18→22:15)
--- NOTE | 2024-06-02 09:28 | PCM.PN.HOSP ---
Reason for Visit Reason for Visit: Shortness of breath Subjective Subjective Shortness of breath seems to be improving. Oxygen requirements are decreasing. Patient states he still gets fairly exertional dyspneic. Is not on oxygen at baseline. Does follow at [facility] for both his dermatomyositis and pulmonary fibrosis. He does think that they are related but is not 100% clear on this. Seems to be diuresing well and improving with diuresis. Patient does complain of some tongue burning I suspect he has some early thrush however no plaques have developed as of yet. Objective Data Objective Data Vital Signs: Vital Signs Temp Pulse Resp BP Pulse Ox O2 Del Method O2 Flow Rate 96.8 F L 68 16 124/81 H 92 Nasal Cannula 5 06/02/24 05:00 06/02/24 07:13 06/02/24 07:13 06/02/24 05:00 06/02/24 07:13 06/02/24 08:18 06/02/24 08:18 FiO2 68 05/31/24 22:00 Oxygen Flow Rate (L/min) 5 Oxygen Delivery Method Nasal Cannula Weight: 106.1 kg Body Mass Index (BMI) 30.0 Intake & Output: Intake and Output for Last 24 Hours 05/31/24 06/01/24 06/02/24 23:59 23:59 23:59 Intake Total 1000 / 1440 1460 / 1460 Output Total 1000 / 1250 2250 / 2250 Balance 0 / 190 -790 / -790 Lab / Micro Data 05/31/24 08:22 06/02/24 09:37 Radiography Diagnostic Testing: Radiology Impression Echocardiogram 05/31/24 11:23 Interpretation Summary Normal LV size. The left ventricular ejection fraction is 55 %. D shaped septum in diastole. Pulmonary artery systolic pressure is 53 mmHg. Ordering Physician: Christian Shah Referring Physician: SHAHRIAR PRUITT Performed By: Holley Carlos RCS Physical Exam Const alert, oriented x3, no apparent distress and well nourished; Negative for average body habitus or healthy appearing Constitutional Narrative: Obese, middle-aged, white male, sitting up in bed, appears comfortable, nontoxic appearing, appears to be comfortable on current oxygen at 2 to 3 L. Nursing at bedside HEENT head/scalp atraumatic and moist oral mucous membranes HEENT Narrative: [place] and slightly red but no plaques are present Head and Scalp: normocephalic Resp normal respiratory effort, no retractions, no use of accessory muscles and No clear to auscultation bilaterally Resp Narrative: Diffuse crackles worse at the bases bilaterally in the apices, crackles are fine Auscultation: crackles; Negative for rhonchi or wheezes Cardio regular rate, regular rhythm, S1 normal heart sound, S2 normal heart sound, no murmurs, no rub, no gallops and no clicks GI normal to inspection, nondistended, normoactive bowel sounds, soft to palpation and non-tender Extremity Extremity Narrative: Slight left lower extremity swelling, lower extremity Servando bandage in place, no clubbing or cyanosis, swelling around the knee joint Neuro oriented x3 and no focal motor deficits Neuro Narrative: Decreased movement left lower extremity due to recent arthroplasty but otherwise unremarkable Psych affect normal Psych Narrative: Very pleasant, interacts appropriately Assessment & Plan Assessment/Plan (1) Interstitial lung disease: (2) Acute hypoxic respiratory failure: (3) Elevated troponin: (4) Acute on chronic heart failure with preserved ejection fraction: (5) JENNIFER (acute kidney injury): PLAN: Plan Acute on chronic hypoxic respiratory failure secondary to IPF exacerbation/acute on chronic heart failure with preserved ejection fraction -Continue diuresis but transition to 40 twice daily from 20 3 times daily -Clinically is improving and oxygen sat durations are slowly improving to the point where he is now on 2 L at rest -Patient is aware he may need to go home on supplemental oxygen and will assess home O2 eval prior to discharge -Continue steroids as ordered -Continue pulmonary toilet as ordered -Continue immunosuppression as I do not think there is an infectious component related at this time -Continue prophylactic antibiotics for immunosuppression -Continue home sildenafil -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 [place] JENNIFER -Resolved with diuresis Troponin elevation -Suspect related to acute decompensated heart failure with preserved ejection fraction -Patient without chest pain -Echo shows no wall motion abnormality, EF of 55% with pulmonary artery systolic pressure of 53 mmHg Knee osteoarthritis -Total knee arthroplasty done on Saturday of last week -PT/OT consultation -As needed pain medication available -Continue to monitor clinically Hyponatremia -Resolved -Suspect related to volume overload Constipation -Continue home MiraLAX -Continue docusate -Encouraged prune juice GERD -Continue home PPI home History of Raynaud's If no current issues History of dermatomyositis -Ongoing outpatient follow-up with rheumatology at [facility] [place] DVT prophylaxis -Continue subcu heparin but increase to 3 times daily dosing CODE STATUS -Full code Charges/Coding Visit Charges Inpatient E&M: 94828 Subs Hosp L2
[2024-06-02] MEDS: Aspirin E.C. 81 MG Tablet PO (10:01)
[2024-06-02] MEDS: Docusate Sodium 100 MG Capsule PO ×2 (10:01→20:44)
[2024-06-02] MEDS: Pantoprazole Sodium 20 MG Tablet PO (10:01)
[2024-06-02] MEDS: Potassium Chloride Oral Tablet 20 MEQ PO ×2 (10:01→16:33)
[2024-06-02] MEDS: Ascorbic Acid 500 MG Tablet PO ×2 (10:01→20:44)
[2024-06-02] MEDS: Acetaminophen 325 MG Tablet 650 MG PO (10:01)
[2024-06-02] MEDS: Cefadroxil 500 MG CAPSULE PO ×2 (10:01→20:44)
[2024-06-02] MEDS: Heparin Injection (Vial) 5,000 UNIT/ML VIAL 5000 UNIT SC ×2 (10:02→20:45)
[2024-06-02] MEDS: azaTHIOprine 50 MG Tablet 150 MG PO (10:02)
[2024-06-02] MEDS: Polyethylene Glycol 3350 17 GM PACKET PO (10:10)
[2024-06-02] MEDS: Furosemide 40 MG/4 ML Vial IV ×2 (10:10→20:44)
[2024-06-02 10:30] LABS: Pro- Brain NATRIURETIC PEPTIDE 4079 pg/mL (<=900)
[2024-06-02 11:03] LABS: Anion Gap 14 (5-15); BUN 29 mg/dL (4-19); BUN/Creat Ratio 24.8 RATIO (10-20); Calcium,Total 8.2 mg/dL (7.6-11.0); Carbon Dioxide 23.2 mmol/L (21.0-32.0); Chloride 97 mmol/L (98-108); Creatinine, Serum 1.17 mg/dL (0.70-1.20); EST Glomerular Filtration Rate 73 (>60); Glucose 244 mg/dL (70-99); Sodium Level 134 mmol/L (133-145)
[2024-06-02] MEDS: Meloxicam 15 MG Tablet PO (11:34)
[2024-06-02] MEDS: NYSTATIN 500,000 UNIT/5 ML UDC 500000 UNIT PO ×2 (18:01→20:37)
--- NOTE | 2024-06-02 19:57 | CON.PCM.CC_ITS ---
HPI Consult Data Date of Consult: 06/02/24 HPI Narrative HPI Narrative: ADMI LARA, is a 54 M who presents [facility] Medical History Raynaud disease Home Medications ?Medication ?Instructions ?Recorded ?Last Taken ?Type fluticasone propionate 50 2 spray intranasal DAILY PRN 08/12/18 05/27/24 History mcg/actuation nasal Allergies spray,suspension acetaminophen 500 mg tablet 1,000 mg PO DAILY PRN Pain Or Fever 04/14/19 05/31/24 History naproxen 500 mg tablet 500 mg PO DAILY PRN Pain Or Fever 04/14/19 04/13/19 History ascorbic acid (vitamin C) 500 mg 500 mg PO BID 5 05/30/24 History tablet (Vitamin C) aspirin 81 mg tablet,delayed 81 mg PO DAILY 05/31/24 0 05/30/24 History release azathioprine 50 mg tablet 150 mg PO DAILY 05/31/24 History cefadroxil 500 mg capsule 500 mg PO BID INFECTION 05/1005/30/24 History
--- NOTE | 2024-06-02 19:57 | PCMCONS.TICU ---
HPI Consult Data Date of Consult: 06/02/24 HPI Narrative HPI Narrative: DAMI LARA, is a 54 M who presents [facility] Medical History Raynaud disease Home Medications ?Medication ?Instructions ?Recorded ?Last Taken ?Type fluticasone propionate 50 2 spray intranasal DAILY PRN 08/12/18 05/27/24 History mcg/actuation nasal Allergies spray,suspension acetaminophen 500 mg tablet 1,000 mg PO DAILY PRN Pain Or Fever 04/14/19 05/31/24 History naproxen 500 mg tablet 500 mg PO DAILY PRN Pain Or Fever 04/14/19 04/13/19 History ascorbic acid (vitamin C) 500 mg 500 mg PO BID 05/31/24 05/30/24 History tablet (Vitamin C) aspirin 81 mg tablet,delayed 81 mg PO DAILY 05/31/24 05/30/24 History release azathioprine 50 mg tablet 150 mg PO DAILY 05/31/24 05/30/24 History cefadroxil 500 mg capsule 500 mg PO BID INFECTION 05/31/24 05/30/24 History docusate sodium 100 mg capsule 100 mg PO BID 05/31/24 05/30/24 History meloxicam 15 mg tablet 15 mg PO DAILY 05/31/24 05/30/24 History omeprazole 20 mg capsule,delayed 20 mg PO DAILY ACID REFLUX 05/31/24 05/30/24 History release oxycodone 5 mg tablet 10 mg PO Q4H PRN pain 05/31/24 05/31/24 History polyethylene glycol 3350 17 17 g PO DAILY PRN CONSTIPATION 05/31/24 Unknown History gram/dose oral powder sildenafil (pulm.hypertension) 20 60 mg PO DAILY PRN BLLOOD FLOW 05/31/24 Unknown History mg tablet sulfamethoxazole 800 1 tab PO MOWEFR 05/31/24 05/29/24 History mg-trimethoprim 160 mg tablet Allergy/AdvReac Type Severity Reaction Status Date / Time No Known Allergies Allergy Verified 05/31/24 08:17 Surgical History History of left knee replacement History of lung biopsy Hx of carpal tunnel repair Social History Smoking Status: Former smoker Objective Data Objective Data Vital Signs: Vital Signs Last response Temperature 36.4 C L 06/02/24 16:35 Temperature Source Oral 06/02/24 16:35 Pulse Rate 67 06/02/24 16:35 Pulse Strength Normal (2+) 06/02/24 08:17 Respiratory Rate 16 06/02/24 16:35 Respiratory Effort Short of Breath 06/02/24 16:50 Respiratory Depth Normal 06/02/24 16:50 Respiratory Pattern Normal 06/02/24 16:50 Blood Pressure 115/90 H 06/02/24 16:35 Blood Pressure Mean 98 06/02/24 16:35 Blood Pressure Source Monitor 05/31/24 14:00 Blood Pressure Position Sitting 05/31/24 12:10 Pulse Ox 94 06/02/24 16:35 Oxygen Delivery Method Nasal Cannula 06/02/24 16:50 Oxygen Flow Rate (L/min) 3 06/02/24 16:50 Fraction of Inspired Oxygen (FIO2) 68 05/31/24 22:00 I&O: I&O Last 24 Hours 06/01/24 06/02/24 06/02/24 23:59 11:59 23:59 Intake Total 900 / 1460 1999 Balance 900 / -790 1999 I&O: Total Stay 05/31/24 08:12 thru 06/02/24 12:00 Intake Total 4460 Output Total 3250 Balance 1210 Current Meds Ordered / Administered: Current meds ordered / Administered Generic Name Dose Route Start Last Admin Trade Name Freq PRN Reason Stop Dose Admin Acetaminophen 650 mg 05/31/24 11:48 06/02/24 10:01 Acetaminophen 325 Mg Tablet PO 650 mg Q6H PRN PRN Administration Pain 1-10 Or Fever >100.7 Albuterol Sulfate 2.5 mg 05/31/24 11:48 Albuterol 2.5 Mg/3 Ml Vial.Neb. INHALATION Q2H PRN PRN DYSPNEA Albuterol/Ipratropium 3 ml 05/31/24 11:48 06/02/24 12:28 Ipratropium/Albuterol Sulfate 3 Ml Ampul.Neb INHALATION 3 ml Q6HWA.RT ROBBY Administration Ascorbic Acid 500 mg 05/31/24 22:00 06/02/24 10:01 Ascorbic Acid 500 Mg Tablet PO 500 mg BID ROBBY Administration Aspirin 81 mg 06/01/24 08:00 06/02/24 10:01 Aspirin E.C. 81 Mg Tablet PO 81 mg BREAKFAST ROBBY Administration Azathioprine 150 mg 06/01/24 10:00 06/02/24 10:02 Azathioprine 50 Mg Tablet PO 150 mg DAILY ROBBY Administration Cefadroxil 500 mg 05/31/24 22:00 06/02/24 10:01 Cefadroxil 500 Mg Capsule PO 500 mg BID ROBBY Administration Docusate Sodium 100 mg 05/31/24 22:00 06/02/24 10:01 Docusate Sodium 100 Mg Capsule PO 100 mg BID ROBBY Administration Furosemide 40 mg 06/02/24 10:00 06/02/24 10:10 Furosemide 40 Mg/4 Ml Vial IV 40 mg BID ROBBY Administration Protocol Heparin Sodium (Porcine) 5,000 unit 06/02/24 22:00 Heparin Injection (Vial) 5,000 Unit/Ml Vial SC TID [facility] Sodium Chloride 1,000 mls @ 15 mls/hr 05/31/24 08:20 06/02/24 10:02 IV Not Given .Q48H [facility] Meloxicam 15 mg 06/01/24 10:00 06/02/24 11:34 Meloxicam 15 Mg Tablet PO 15 mg DAILY ROBBY Administration Methylprednisolone 60 mg 05/31/24 14:00 06/02/24 16:33 Methylprednisolone 125 Mg/2 Ml Vial IV Not Given Q8 ROBBY Nystatin 500,000 unit 06/02/24 18:00 06/02/24 18:01 Nystatin 500,000 Unit/5 Ml Udc PO 500,000 unit 4X/DAY ROBBY Administration Ondansetron HCl 4 mg 05/31/24 11:48 Ondansetron 4 Mg/2 Ml Vial IV Q8H PRN PRN NAUSEA/VOMITING Oxycodone HCl 10 mg 05/31/24 13:11 06/02/24 16:23 Oxycodone 5 Mg Tablet PO 10 mg Q4H PRN Administration PAIN 1-10 Pantoprazole Sodium 20 mg 06/01/24 10:00 06/02/24 10:01 Pantoprazole Sodium 20 Mg Tablet PO 20 mg DAILY ROBBY Administration Polyethylene Glycol 17 gm 05/31/24 13:25 06/02/24 10:10 Polyethylene Glycol 3350 17 Gm Packet PO 17 gm DAILY PRN Administration CONSTIPATION Potassium Chloride 20 meq 05/31/24 12:00 06/02/24 16:33 Potassium Chloride Oral Tablet 20 Meq PO 20 meq BIDCM ROBBY Administration Sodium Chloride 10 - 40 ml 05/31/24 12:05 06/01/24 05:26 0.9% Saline Lock 10 Ml Syringe IV 10 ml UD PRN Administration SALINE FLUSH Trimethoprim/Sulfamethoxazole 1 tablet 06/01/24 08:00 06/01/24 09:20 Smz/Tmp Ds Tablet PO 1 tablet MOWEFR ROBBY Administration Lab / Micro Data 05/31/24 08:22 06/02/24 09:37 Labs: Laboratory Results - last 24 hr 06/02/24 09:37: Sodium 134, Potassium 4.0, Chloride 97 L, Carbon Dioxide 23.2, Anion Gap 14, BUN 29 H, Creatinine 1.17, Estim Creat Clear Calc 91.50, Est GFR (MDRD) Non-Af 73, BUN/Creatinine Ratio 24.8 H, Glucose 244 H, Calcium 8.2, NT pro BNP II 4079 H Micro: Microbiology 06/02/24 10:25 Mucosa - Nasopharyngeal Respiratory Panel (PCR) - Final Assessment and Plan . Assessment and plan: Chart and data reviewed at length Logged onto PCU and briefly d/w staff I was then informed that this consultation has been cancelled. The entirety of this encounter was done via Telemedicine
[2024-06-02] MEDS: 0.9% Saline Lock 10 ML Syringe IV (20:45)
[2024-06-03] VITALS (12 sets, daily range): BP systolic 105–149; BP diastolic 85–89; PULSE 77–94; RESP 14–18; TEMP 36.5–36.9; O2SAT 86–97
[2024-06-03] MEDS: oxyCODONE 5 MG Tablet 10 MG PO ×5 (00:32→21:21)
[2024-06-03 06:00] LABS: Absolute Lymphocyte Count 0.41 X10^3/uL (0.83-4.51); Absolute Neutrophil Count 5.4 X10^3/uL (2.0-7.7); Basophil# 0.01 X10^3/uL; Basophil% 0.2 % (0-1); Hematocrit 38.2 % (40-54); Hemoglobin 12.9 g/dL (13.0-16.5); Lymphocyte # 0.41 X10^3/ul (0.83-4.51); Lymphocyte % 6.2 % (19-41); Mean Corp Hgb Conc 33.8 g/dL (32-36); Mean Corpuscular Hgb 29.3 pg (27.0-32.0); Mean Corpuscular Volume 86.8 fL (80-94); Mean Platelet Vol. 10.7 fl (6.2-12.0); Monocyte# 0.74 X10^3/uL; Monocyte% 11.2 % (0-10); NRBC Flagged by Analyzer 0 % (0-5); Neutrophil # 5.39 X10^3/uL (2.7-7.7); Neutrophil % 81.8 % (47-70); POSITIVE DIFFERENTIAL YES; Platelet Count 232 K/mm3 (150-450); RBC Distribution Width CV 13.5 % (11.6-14.6); RBC Distribution Width SD 42.4 fl (35.1-43.9); White Blood Count 6.6 K/mm3 (4.4-11.0)
[2024-06-03] MEDS: MethylPREDNISolone 125 MG/2 ML Vial 60 MG IV ×3 (06:04→21:16)
[2024-06-03] MEDS: Heparin Injection (Vial) 5,000 UNIT/ML VIAL 5000 UNIT SC ×3 (06:04→21:16)
[2024-06-03 06:31] LABS: Magnesium 2.1 mg/dL (1.5-2.2)
[2024-06-03 07:08] LABS: Anion Gap 12 (5-15); BUN 12 mg/dL (4-19); BUN/Creat Ratio 11.3 RATIO (10-20); Calcium,Total 8.3 mg/dL (7.6-11.0); Chloride 100 mmol/L (98-108); Creatinine, Serum 1.02 mg/dL (0.70-1.20); EST Glomerular Filtration Rate 86 (>60); Estimated Creatinine Clearance 104.95 ml/min (50-250); Glucose 158 mg/dL (70-99); Potassium 4.6 mmol/L (3.3-5.1); Sodium Level 135 mmol/L (133-145)
[2024-06-03] MEDS: Ipratropium/Albuterol Sulfate 3 ML AMPUL.NEB INHALATION ×3 (07:18→19:32)
[2024-06-03] MEDS: Furosemide 40 MG/4 ML Vial IV ×3 (09:13→21:16)
[2024-06-03] MEDS: Polyethylene Glycol 3350 17 GM PACKET PO (09:13)
[2024-06-03] MEDS: NYSTATIN 500,000 UNIT/5 ML UDC 500000 UNIT PO ×3 (09:13→18:28)
[2024-06-03] MEDS: azaTHIOprine 50 MG Tablet 150 MG PO (09:14)
[2024-06-03] MEDS: Docusate Sodium 100 MG Capsule PO ×2 (09:14→21:16)
[2024-06-03] MEDS: Cefadroxil 500 MG CAPSULE PO ×2 (09:14→21:17)
[2024-06-03] MEDS: Potassium Chloride Oral Tablet 20 MEQ PO ×2 (09:15→18:29)
[2024-06-03] MEDS: Aspirin E.C. 81 MG Tablet PO (09:15)
[2024-06-03] MEDS: Smz/Tmp Ds Tablet 1 TABLET PO (09:16)
[2024-06-03] MEDS: Acetaminophen 325 MG Tablet 650 MG PO (09:17)
[2024-06-03] MEDS: Ascorbic Acid 500 MG Tablet PO ×2 (09:17→21:17)
[2024-06-03] MEDS: Pantoprazole Sodium 20 MG Tablet PO (09:17)
[2024-06-03] MEDS: Meloxicam 15 MG Tablet PO (10:29)
--- NOTE | 2024-06-03 11:00 | CASEMGMT ---
MAXIMINO SHANKAR in to inquire if patient heard from [facility] that was setup. Patient states that he did not hear from any [facility] agencies. MAXIMINO SHANKAR called [facility], where patient had surgery, and spoke with Shobha, director of case management. Per Shobha, there is no documentation that patient was setup with [facility]. MAXIMION SHANKAR reviewed therapy note, patient ambulating 200ft contact guard. MAXIMINO SHANKAR in to discuss discharge planning with patient and discussed outpatient therapy at discharge. Patient agreeable to outpatient therapy and prefers [facility]. MAXIMINO SHANKAR to assist with obtaining script for outpatient therapy and sending referral to [facility] with request to call patient to schedule appt. CM will continue to follow this patient and plan for a safe discharge.
[2024-06-03] MEDS: 0.9% Saline Lock 10 ML Syringe IV (14:45)
--- NOTE | 2024-06-03 15:23 | PN.HOSP_ITS ---
Reason for Visit Reason for Visit: Shortness of breath Subjective Subjective Patient states overall he is feeling better. Is able to be on room air at rest. We did an ambulatory pulse ox but he desatted and required 4 L to maintain oxygen saturation above 88%. Still was somewhat winded with exertion but overall significantly improved. Had bowel movement last evening Objective Data Objective Data Vital Signs: Vital Signs Temp Pulse Resp BP Pulse Ox O2 Del Method O2 Flow Rate 97.7 F L 85 16 105/86 H 93 Room Air 2 06/03/24 14:31 06/03/24 14:31 06/03/24 14:31 06/03/24 14:31 06/03/24 14:31 06/03/24 14:06/03/24 14:10 FiO2 68 05/31/24 22:00 Oxygen Flow Rate (L/min) 2 Oxygen Delivery Method Room Air Weight: 106.1 kg Body Mass Index (BMI) 30.0 Intake & Output: Intake and Output for Last 24 Hours 06/01/24 06/02/24 06/03/24 23:59 23:59 23:59 Intake Total 1460 / 1460 2000 / 2250 250 / 250 Output Total 2250 / 2250 500 / 500 Balance -790 / -790 2000 / 1750 -250 / -250 Lab / Micro Data 06/03/24 05:38 06/03/24 05:38 Labs: Laboratory Results - last 24 hr 06/03/24 05:38: WBC 6.6, RBC 4.40 L, Hgb 12.9 L, Hct 38.2 L, MCV 86.8, MCH 29.3, MCHC 33.8, RDW Std Deviation 42.4, RDW Coeff of Madalyn 13.5, Plt Count 232, MPV 10.7, Immature Gran % (Auto) 0.600, Neut % (Auto) 81.8 H, Lymph % (Auto) 6.2 L, [place] % (Auto) 11.2 H, Eos % (Auto) 0.0, Baso % (Auto) 0.2, Absolute Neuts (auto) 5.4, Absolute Lymphs (auto) 0.41 L, Nucleated RBC % 0, Sodium 135, Potassium 4.6, Chloride 100, Carbon Dioxide 24.0, Anion Gap 12, BUN 12, Creatinine 1.02, Estim Creat Clear Calc 104.95, Est GFR (MDRD) Non-Af 86, BUN/Creatinine Ratio 11.3, Glucose 158 H, Calcium 8.3, Magnesium 2.1 Micro: Microbiology 06/02/24 10:25 Mucosa - Nasopharyngeal Respiratory Panel (PCR) - Final Physical Exam Const alert, oriented x3, no apparent distress and well nourished; Negative for average body habitus or healthy appearing Constitutional Narrative: Obese, middle-aged, white male, sitting up in a chair at the bedside, appears comfortable, currently on room air, no signs of respiratory distress HEENT normocephalic, head/scalp atraumatic and moist oral mucous membranes HEENT Narrative: No thrush Resp normal respiratory effort, no retractions, no use of accessory muscles and No clear to auscultation bilaterally Resp Narrative: Mild crackles at the right base although the crackles seem to be resolving Auscultation: crackles; Negative for rhonchi or wheezes Cardio regular rate, regular rhythm, S1 normal heart sound, S2 normal heart sound, no murmurs, no rub, no gallops and no clicks GI normal to inspection, nondistended, normoactive bowel sounds, soft to palpation and non-tender Extremity Extremity Narrative: Slight left lower extremity swelling at the joint, lower extremity Servando bandage in place, no clubbing or cyanosis, Homans' sign is negative, no Swelling in the calf, wound VAC in place Neuro oriented x3 and no focal motor deficits Neuro Narrative: Decreased movement left lower extremity due to recent arthroplasty but otherwise unremarkable, ambulated with wheeled walker not having significant difficulty Speech: speech normal Psych affect normal Psych Narrative: Very pleasant, interacts appropriately Assessment & Plan Assessment/Plan (1) Interstitial lung disease: (2) Acute hypoxic respiratory failure: (3) Elevated troponin: (4) Acute on chronic heart failure with preserved ejection fraction: (5) JENNIFER (acute kidney injury): PLAN: Plan Acute on chronic hypoxic respiratory failure secondary to IPF exacerbation/acute on chronic heart failure with preserved ejection fraction -Continue Lasix 40 mg but increase from twice daily to 3 times daily -Patient is now on room air at rest but did require 4 L of oxygen to maintain saturations greater than 88% with exertion -Will continue diuresis today and reassess ambulatory pulse ox tomorrow -Patient is aware he may need to go home on supplemental oxygen and will assess home O2 eval prior to discharge -Continue steroids as ordered with plan to discharge on taper -Continue pulmonary toilet as ordered -Continue home sildenafil -Will need follow-up after discharge at his [employer] in [place] Troponin elevation -Suspect related to acute decompensated heart failure with preserved ejection fraction -Patient without chest pain -Echo shows no wall motion abnormality, EF of 55% with pulmonary artery systolic pressure of 53 mmHg Knee osteoarthritis -Total knee arthroplasty done on Saturday of last week -Suspect his pulmonary edema may be related to intraoperative fluids -PT/OT consultation -As needed pain medication available -Continue to monitor clinically Hyponatremia -Resolved -Suspect related to volume overload Constipation -Patient did have bowel movement last evening -Continue home MiraLAX -Continue docusate GERD -Continue home PPI home History of Raynaud's If no current issues History of dermatomyositis -Ongoing outpatient follow-up with rheumatology at [facility] [place] DVT prophylaxis -Continue subcu heparin 3 times daily CODE STATUS -Full code Charges/Coding Visit Charges Inpatient E&M: 59551 Subs Hosp L2
[2024-06-04] MEDS: oxyCODONE 5 MG Tablet 10 MG PO ×3 (01:49→12:19)
[2024-06-04 01:50] VITALS: BP 140/85; PULSE 68; RESP 15; TEMP 36.6; O2SAT 96
[2024-06-04] MEDS: MethylPREDNISolone 125 MG/2 ML Vial 60 MG IV (05:30)
[2024-06-04] MEDS: Furosemide 40 MG/4 ML Vial IV (05:30)
[2024-06-04] MEDS: Heparin Injection (Vial) 5,000 UNIT/ML VIAL 5000 UNIT SC (05:30)
[2024-06-04 05:58] LABS: Absolute Lymphocyte Count 0.74 X10^3/uL (0.83-4.51); Absolute Neutrophil Count 5.5 X10^3/uL (2.0-7.7); Basophil# 0.02 X10^3/uL; Basophil% 0.3 % (0-1); Eosinophil# 0.01 X10^3/uL; Eosinophils% 0.1 % (0-5); Hematocrit 41.2 % (40-54); Hemoglobin 13.8 g/dL (13.0-16.5); Lymphocyte # 0.74 X10^3/ul (0.83-4.51); Lymphocyte % 10.1 % (19-41); Mean Corp Hgb Conc 33.5 g/dL (32-36); Mean Corpuscular Hgb 28.9 pg (27.0-32.0); Mean Corpuscular Volume 86.4 fL (80-94); Mean Platelet Vol. 10.5 fl (6.2-12.0); Monocyte# 0.96 X10^3/uL; Monocyte% 13.1 % (0-10); NRBC Flagged by Analyzer 0 % (0-5); Neutrophil # 5.52 X10^3/uL (2.7-7.7); Neutrophil % 75.4 % (47-70); Platelet Count 261 K/mm3 (150-450); RBC Distribution Width CV 13.7 % (11.6-14.6); RBC Distribution Width SD 42.4 fl (35.1-43.9); Red Blood Count 4.77 M/mm3 (4.6-6.2); White Blood Count 7.3 K/mm3 (4.4-11.0)
[2024-06-04 06:22] LABS: Anion Gap 10 (5-15); BUN 30 mg/dL (4-19); BUN/Creat Ratio 27.4 RATIO (10-20); Calcium,Total 8.4 mg/dL (7.6-11.0); Carbon Dioxide 25.3 mmol/L (21.0-32.0); Chloride 99 mmol/L (98-108); EST Glomerular Filtration Rate 79 (>60); Estimated Creatinine Clearance 97.32 ml/min (50-250); Glucose 120 mg/dL (70-99); Potassium 4.8 mmol/L (3.3-5.1); Sodium Level 134 mmol/L (133-145)
[2024-06-04 07:08] VITALS: PULSE 78; RESP 20; O2SAT 95
[2024-06-04] MEDS: Ipratropium/Albuterol Sulfate 3 ML AMPUL.NEB INHALATION ×2 (07:10→12:34)
[2024-06-04] MEDS: NYSTATIN 500,000 UNIT/5 ML UDC 500000 UNIT PO (07:48)
[2024-06-04] MEDS: Pantoprazole Sodium 20 MG Tablet PO (07:48)
[2024-06-04] MEDS: Aspirin E.C. 81 MG Tablet PO (07:49)
[2024-06-04] MEDS: azaTHIOprine 50 MG Tablet 150 MG PO (07:49)
[2024-06-04] MEDS: Docusate Sodium 100 MG Capsule PO (07:49)
[2024-06-04] MEDS: Cefadroxil 500 MG CAPSULE PO (07:49)
[2024-06-04] MEDS: Potassium Chloride Oral Tablet 20 MEQ PO (07:49)
[2024-06-04] MEDS: Ascorbic Acid 500 MG Tablet PO (07:50)
[2024-06-04 07:59] VITALS: BP 137/87; PULSE 86; RESP 16; TEMP 36.6; O2SAT 92
[2024-06-04] MEDS: Meloxicam 15 MG Tablet PO (08:07)
--- NOTE | 2024-06-04 09:49 | CASEMGMT ---
Addendum entered by Gustavo Pool 06/04/24 13:23: Per Dr Miles, she has reviewed the overnight trending pulse ox results from last night and states is okay on RA @ HS. Home O2 amb testing has been completed. Pt qualifies for O2 @ 2 l/m w/exertion. Dr Miles made aware. Script obtained from Dr Miles and sent to [facility] via [id number] along w/testing results. Original Note: MAXIMINO SHANKAR NOTE: Script for OP PT/OT faxed to [facility]. Call to [facility] and spoke w/Namita. She verifies she has received the fax. MAXIMINO SHANKAR asked for her to call pt to schedule appt. MAXIMINO SHANKAR to room. Pt made aware OP therapy script was faxed to [facility] and that they will be calling him to schedule appt. He voices appreciation. Pt was provided w/copy of script as well. He denies having any other discharge needs or concerns. Chiquis DOMÍNGUEZ RN CM
[2024-06-04 12:33] VITALS: PULSE 80; RESP 18
--- NOTE | 2024-06-04 12:55 | PCM.DC.SUM ---
Providers Date of Admission: 05/31/24 Primary Care Physician: Dr. Mike Guo MD Consultations 05/31/24 15:32 Consult: Onc/Wound/palliative care nurse Routine Comment: Reason for Consult:: Admitted with left knee wound vac Reason For Visit: sob Diagnosis Discharge Diagnosis (1) Interstitial lung disease: Status: Chronic Code(s): J84.9 - Interstitial pulmonary disease, unspecified (2) Acute hypoxic respiratory failure: Status: Acute Code(s): J96.01 - Acute respiratory failure with hypoxia (3) Elevated troponin: Status: Acute Code(s): R79.89 - Other specified abnormal findings of blood chemistry (4) Acute on chronic heart failure with preserved ejection fraction: Status: Acute Code(s): I50.33 - Acute on chronic diastolic (congestive) heart failure (5) JENNIFER (acute kidney injury): Status: Acute Code(s): N17.9 - Acute kidney failure, unspecified Plan Acute on chronic hypoxic respiratory failure secondary to IPF exacerbation/acute on chronic heart failure with preserved ejection fraction -Continue Lasix 40 mg but increase from twice daily to 3 times daily -Patient is now on room air at rest but did require 4 L of oxygen to maintain saturations greater than 88% with exertion -Will continue diuresis today and reassess ambulatory pulse ox tomorrow -Patient is aware he may need to go home on supplemental oxygen and will assess home O2 eval prior to discharge -Continue steroids as ordered with plan to discharge on taper -Continue pulmonary toilet as ordered -Continue home sildenafil -Will need follow-up after discharge at his senior lead project manager in [place] Troponin elevation -Suspect related to acute decompensated heart failure with preserved ejection fraction -Patient without chest pain -Echo shows no wall motion abnormality, EF of 55% with pulmonary artery systolic pressure of 53 mmHg Knee osteoarthritis -Total knee arthroplasty done on Saturday of last week -Suspect his pulmonary edema may be related to intraoperative fluids -PT/OT consultation -As needed pain medication available -Continue to monitor clinically Hyponatremia -Resolved -Suspect related to volume overload Constipation -Patient did have bowel movement last evening -Continue home MiraLAX -Continue docusate GERD -Continue home PPI home History of Raynaud's If no current issues History of dermatomyositis -Ongoing outpatient follow-up with rheumatology at [facility] DVT prophylaxis -Continue subcu heparin 3 times daily CODE STATUS -Full code Medications at Discharge Home Medications fluticasone propionate 50 mcg/actuation nasal spray,suspension 2 spray intranasal DAILY PRN Allergies 08/12/18 acetaminophen 500 mg tablet 1,000 mg PO DAILY PRN Pain Or Fever 04/14/19 naproxen 500 mg tablet 500 mg PO DAILY PRN Pain Or Fever 04/14/19 ascorbic acid (vitamin C) 500 mg tablet (Vitamin C) 500 mg PO BID vitamin 05/31/24 aspirin 81 mg tablet,delayed release 81 mg PO DAILY heart health 05/31/24 azathioprine 50 mg tablet 150 mg PO DAILY 05/31/24 cefadroxil 500 mg capsule 500 mg PO BID INFECTION 05/31/24 docusate sodium 100 mg capsule 100 mg PO BID stool softner 05/31/24 meloxicam 15 mg tablet 15 mg PO DAILY pain 05/31/24 omeprazole 20 mg capsule,delayed release 20 mg PO DAILY ACID REFLUX 05/31/24 oxycodone 5 mg tablet 10 mg PO Q4H PRN pain 05/31/24 polyethylene glycol 3350 17 gram/dose oral powder 17 g PO DAILY PRN CONSTIPATION 05/31/24 sildenafil (pulm.hypertension) 20 mg tablet 60 mg PO DAILY PRN BLLOOD FLOW 05/31/24 sulfamethoxazole 800 mg-trimethoprim 160 mg tablet 1 tab PO MOWEFR infection 05/31/24 furosemide 40 mg tablet (Lasix) 40 mg PO BID #28 tabs 06/04/24 nystatin 100,000 unit/mL oral suspension 500,000 unit (5 mL) PO 4X/DAY 7 days #140 mL 06/04/24 potassium chloride 20 mEq tablet,extended release(part/cryst) 20 meq PO BIDCM #30 tabs 06/04/24 prednisone 20 mg tablet 40 mg (2 x 20 mg) PO DAILY #14 tabs 06/04/24 Hospital Course Operations None Procedures 2-D Echocardiogram, EKG and - Summary of Care Provided Minutes Spent on Discharge: 39 Hospital Course: Mr. Dumont is a 58-year-old white male who presents emergency department [facility] on 05/31/2024 with a chief complaint of shortness of breath. Patient has a history of pulmonary fibrosis and receives care at [facility] via pulmonology as well as dermatomyositis for which she receives care at [facility] with a gin feeder. Patient had a total knee arthroplasty on Saturday of last week and was discharged same day. He reported he was home about 24 hours and developed acute onset shortness of breath. He had no fever or chills. He had no cough. Given his extreme dyspnea in the emergency department. He is not on oxygen at baseline. He had no chest pain, no productive sputum and vital signs on presentation emergency department showed a temperature of 97.7, heart rate 106, respiratory rate was 36, blood pressure was 147/111 and pulse ox was 85% on room air. His noted that when he arrived to the emergency department they felt that his interstitial lung disease is flaring up as noted below and this happens when he has a flare of his IPF. CBC shows a white count of 11.7 but was otherwise unremarkable. He did have a left shift with a 6.2% neutrophilia. Coags were unremarkable. ABG showed a pH of 7.48 with a pCO2 of 27.5 and a pO2 of 60 on a nonrebreather. Chemistry panel showed hyponatremia sodium of 128, hypochloremia with a chloride of 92, serum bicarb was 15.9 anion gap was 20, BUN was 27 with a serum creatinine of 1.65. Blood glucose levels elevated at 171. Initial troponin was 260 with a repeat of 212. His BNP was initially 17,000 and a repeat was done 48 hours later it was down to 4000. CT of the chest was done to rule out PE given his recent surgery. This showed marked interval progression of interstitial lung disease as well as extensive ground-glass opacities, no PE. Patient appeared markedly volume overloaded and he was admitted to the PCU and placed on supplemental oxygen, given steroids, expressive pulmonary toilet, and was given IV Lasix. Patient responded slowly to IV Lasix and had good diuresis. With time he was able to wean his oxygen to the point where he was on room air at rest. He did require 2 L of oxygen with exertion at the time of discharge. An echocardiogram was done to assess his pulmonary pressures. Echocardiogram showed an EF of 55% and pulmonary artery systolic pressure of 55 mmHg. I do suspect he has pulmonary hypertension related to his pulmonary fibrosis at baseline. I highly suspect he was volume overloaded intraoperatively for his total knee arthroplasty and that is the etiology of his respiratory distress at the time of admission. We will discharge him on Lasix 40 mg p.o. twice daily for 7 days then transition to 40 daily for 14 days then stop. I have asked that he obtain a basic metabolic profile to be done early next week either on Saturday or Saturday he is to call his primary care physician and asked for this. I will also asked that he follow-up with his primary care physician within the next week as well. We have also asked that he follow-up with his senior lead project manager at first availability in [place] and wear 2 L of oxygen with exertion until cleared by physician to be on room air [id number]. Overnight pulse ox showed 94% on room air. He was able to be discharged home in stable condition on 06/04/2024. Prescriptions were sent to local pharmacy at discharge. Discharge diagnoses: Acute hypoxic respiratory failure Acute on chronic heart failure with preserved ejection fraction Troponin elevation secondary to hypoxia IPF Knee osteoarthritis status post left total knee arthroplasty Hyponatremia-resolved JENNIFER-resolved Constipation-resolved GERD History of Raynaud's History of dermatomyositis Physical Exam Const alert, oriented x3, no apparent distress and well nourished; Negative for average body habitus or healthy appearing Constitutional Narrative: Obese, middle-aged, white male, sitting up in a chair at the bedside, appears comfortable, currently on room air, no signs of respiratory distress General Appearance: cooperative, comfortable, well kempt and well developed Exam Limitations: no limitations Nutritional Appearance: obese HEENT normocephalic, head/scalp atraumatic, hearing grossly normal bilaterally and moist oral mucous membranes HEENT Narrative: No thrush, Mallampati 2 Eyes EOMs intact bilaterally and conjunctivae normal Eyes Narrative: No scleral icterus Neck no lymphadenopathy and supple Neck Narrative: Trachea midline Resp normal respiratory effort, no retractions, no use of accessory muscles and No clear to auscultation bilaterally Resp Narrative: Very slight crackles in right base Auscultation: crackles; Negative for rales, rhonchi or wheezes Cardio regular rate, regular rhythm, S1 normal heart sound, S2 normal heart sound, no murmurs, no rub, no gallops and no clicks GI normal to inspection, nondistended, normoactive bowel sounds, soft to palpation and non-tender Extremity Extremity Narrative: Slight left lower extremity swelling at the joint, lower extremity Servando bandage in place, no clubbing or cyanosis, Homans' sign is negative, no Swelling in the calf, wound VAC in place Skin skin turgor normal, no jaundice, no petechiae and no mottling Neuro oriented x3, moves all extremities and no focal motor deficits Neuro Narrative: Decreased movement left lower extremity due to recent arthroplasty but otherwise unremarkable, ambulated with wheeled walker not having significant difficulty Speech: speech normal Psych affect normal Psych Narrative: Very pleasant, interacts appropriately Weight / BMI Weight Weight: 106.1 kg Body Mass Index (BMI) 30.0 ABG / Lab / Microbiology Data 06/04/24 05:08 06/04/24 05:08 Laboratory: Laboratory Results - last 24 hr 06/04/24 05:08: WBC 7.3, RBC 4.77, Hgb 13.8, Hct 41.2, MCV 86.4, MCH 28.9, MCHC 33.5, RDW Std Deviation 42.4, RDW Coeff of Madalyn 13.7, Plt Count 261, MPV 10.5, Immature Gran % (Auto) 1.000 H, Neut % (Auto) 75.4 H, Lymph % (Auto) 10.1 L, [place] % (Auto) 13.1 H, Eos % (Auto) 0.1, Baso % (Auto) 0.3, Absolute Neuts (auto) 5.5, Absolute Lymphs (auto) 0.74 L, Nucleated RBC % 0, Sodium 134, Potassium 4.8, Chloride 99, Carbon Dioxide 25.3, Anion Gap 10, BUN 30 H, Creatinine 1.10, Estim Creat Clear Calc 97.32, Est GFR (MDRD) Non-Af 79, BUN/Creatinine Ratio 27.4 H, Glucose 120 H, Calcium 8.4 Microbiology: Microbiology 06/02/24 18:00 Sputum, Expectorated/Coughed Gram Stain - Final 06/02/24 10:25 Mucosa - Nasopharyngeal Respiratory Panel (PCR) - Final D/C Instructions Discharge Diet: Low fat / Low cholesterol (2000 mL fluid restriction/3 gm salt restriction) Discharge Activity: May Not Drive (Until cleared by orthopedic surgery) and Use Walker Weight Bearing Status: Weight bearing as tolerated DC O2, CPAP, BIPAP Needs PSN CPAP & BiPAP: BiPAP & CPAP Settings per PSN Mode AIRVO 05/31/24 23:45 Bipap Delivery Device Nasal Pillows 05/31/24 23:45 Fraction of Inspired Oxygen ( 21 03/26/25 21:35 FIO2) Total Flow Rate 45 05/31/24 19:13 Home O2 Discharge instructions: Yes Type of respiratory needs?: Oxygen Oxygen frequency: With Ambulation Oxygen liters per minute during Ambulation: 2 DC home with Oxygen: Yes Home O2 MD Review: I have reviewed the oxygen testing, and the patient qualifies for home oxygen equipment and portability. The patient is mobile in the home and the community. Meaningful Use Info Meaningful Use Meaningful Use Diagnoses (Choose all that apply): None applicable Ischemic Stroke Statin Dosing Therapy Reference: STATIN DOSE THERAPY REFERENCE: * Patients > 75 years receive moderate or high dose statin therapy. * Patients 75 years or YOUNGER should receive HIGH intensity statin dose unless contraindicated. You will be required to document reason for non-treatment if statin daily dose does not meet guidelines. HIGH DOSE STATIN THERAPY DAILY Atorvastatin > than or = to 40 mg Rosuvastatin > than or = to 20 mg Amlodipine + Atorvastatin > than or = to 2.5/40 mg Ezetimibe + Simvastatin 10/80 mg Simvastatin 80mg Discharge Plan Admission Admit Date/Time: 05/31/24 11:16 Primary Reason for Your Visit: Shortness of breath Attending Provider: Francisca Miles Primary Care Provider: Mike Guo Consulting Providers: Christian Shah Instructions Additional Instructions / Restrictions: 1. Please call your primary care physician and asked that a basic metabolic profile and a magnesium level be done no later than 06/09/2024 to reassess your kidney function and your electrolytes while you are on diuretics. 2. Please call your primary senior lead project manager and get an appointment to be seen within the next 2 weeks if possible 3. Please follow-up with your orthopedic surgeon as recommended 4. Until otherwise instructed, please use 2 L of oxygen with any exertion. Discharge Orders/Prescriptions Prescriptions: New potassium chloride 20 mEq Tablet,Er Particles/Crystals 20 meq PO BIDCM Qty: 30 0RF furosemide [Lasix] 40 mg tablet 40 mg PO BID Qty: 28 0RF Rx Instructions: Take twice daily for 7 days then take daily for 14 days prednisone 20 mg tablet 40 mg PO DAILY Qty: 14 0RF Rx Instructions: 2 tablets daily x 4 days, 1 tablet daily x 6 days nystatin 100,000 unit/mL Suspension 500,000 unit PO 4X/DAY 7 Days Qty: 140 0RF Continued fluticasone propionate 1 SPRAY spray,suspension 2 spray intranasal DAILY PRN (Reason: Allergies) acetaminophen 500 MG tablet 1,000 mg PO DAILY PRN (Reason: Pain Or Fever) naproxen 500 MG tablet 500 mg PO DAILY PRN (Reason: Pain Or Fever) oxycodone 5 mg tablet 10 mg PO Q4H PRN (Reason: pain) sulfamethoxazole-trimethoprim 800-160 mg tablet 1 tab PO MOWEFR polyethylene glycol 3350 17 gram/dose powder 17 g PO DAILY PRN (Reason: CONSTIPATION) omeprazole 20 mg capsule,delayed release(DR/EC) 20 mg PO DAILY meloxicam 15 mg tablet 15 mg PO DAILY cefadroxil 500 mg capsule 500 mg PO BID docusate sodium 100 mg capsule 100 mg PO BID azathioprine 50 mg tablet 150 mg PO DAILY aspirin 81 mg tablet,delayed release (DR/EC) 81 mg PO DAILY ascorbic acid (vitamin C) [Vitamin C] 500 mg tablet 500 mg PO BID sildenafil (pulm.hypertension) 20 mg tablet 60 mg PO DAILY PRN (Reason: BLLOOD FLOW) Referrals / Follow Up: Mike Guo MD [Primary Care Provider] - Within 1 Week Disposition Disposition (needs filled in before D/C Order can be placed): Home, Self Care Charges/Coding Visit Charges Inpatient E&M: 60811 Disch Hosp >30min
[2024-06-04 13:14] VITALS: O2SAT 85; O2SAT 93; O2SAT 97
== END 2024-06-04 15:30 | disposition home or self-care (01) | DRG 189 ==
LOC: ED 11:33 → PCU 11:42
PROVIDERS: Admitting Provider Internal Medicine; Emergency Provider Emergency Medicine; PCP Family Medicine; Visit Provider Internal Medicine
DX: J96.21 Acute and chronic respiratory failure with hypoxia (principal); I50.33 Acute on chronic diastolic (congestive) heart failure; I24.89 Other forms of acute ischemic heart disease; M33.13 Other dermatomyositis without myopathy; E87.1 Hypo-osmolality and hyponatremia; N17.9 Acute kidney failure, unspecified; I27.20 Pulmonary hypertension, unspecified; E11.65 Type 2 diabetes mellitus with hyperglycemia; J84.10 Pulmonary fibrosis, unspecified; I25.10 Atherosclerotic heart disease of native coronary artery without angina pectoris; K21.9 Gastro-esophageal reflux disease without esophagitis; K59.00 Constipation, unspecified; I73.00 Raynaud's syndrome without gangrene; Z87.891 Personal history of nicotine dependence; Z79.82 Long term (current) use of aspirin; Z79.01 Long term (current) use of anticoagulants; Z79.1 Long term (current) use of non-steroidal anti-inflammatories (NSAID); R79.89 Other specified abnormal findings of blood chemistry; Z96.652 Presence of left artificial knee joint
CPT/HCPCS: 36415; 36600; 71275; 74177; 80048; 82803; 82962; 83735; 83880; 84484; 85025; 85610; 85730; 87070; 87205; 87633; 93005; 93306; 94640; 94660; 94668; 94762; 97116; 97162; 97166; 97530; 97535; 97803; 99252; 99285; Q9967; A4216; G0463; J1940; J2405